=== PATIENT | female | born 1950 | race Caucasian/White ===

== ENCOUNTER 2019-08-24 08:58 | Outpatient (CLI) | payer MEDICARE, OTHER, SELFPAY ==
--- NOTE | ~2019-08-24 | MM_ITS ---
EXAMINATION: MM screening paula BI w jean-paul HISTORY: Screening mammogram TECHNIQUE: Craniocaudal and mediolateral oblique 3-D tomosynthesis images were obtained and synthetic 2-D images were generated. CAD analysis was submitted and interpreted. COMPARISON: 03/21/2017 bilateral digital screening mammogram BREAST PARENCHYMAL COMPOSITION: There are scattered areas of fibroglandular density. FINDINGS: Stable 6 mm circumscribed upper outer right breast mass, unchanged since 03/21/2017, consist ent with benign process, likely an intramammary lymph node. Occasional bilateral benign calcifications. There is no evidence of suspicious mass, calcification, o r architectural distortion to suggest malignancy in either breast. There has been no suspicious inter kadie change. IMPRESSION: 1. No mammographic evidence of malignancy. 2. Recommend routine screening mammography in one year. BI-RADS Category 2: Benign finding(s). Reviewed, dictated and finalized at location A. OWS LAPTOP TECHNICIAN
== END 2019-08-24 08:59 | disposition home or self-care (01) ==
LOC: ANHIMG 08:59
PROVIDERS: PCP Family Medicine; Visit Provider Nurse Practitioner Family
DX: Z12.31 Encounter for screening mammogram for malignant neoplasm of breast (principal)
CPT/HCPCS: 77063; 77067

== ENCOUNTER 2021-01-28 15:19 | Outpatient (CLI) | payer MEDICARE, OTHER, SELFPAY ==
--- NOTE | ~2021-01-28 | MM_ITS ---
EXAMINATION: MM screening paula BI w jean-paul HISTORY: Screening TECHNIQUE: Craniocaudal and mediolateral oblique 3-D tomosynthesis images were obtained and synthetic 2-D images were generated. CAD analysis was submitted and interpreted. COMPARISON: Comparison to multiple prior studies sequentially, with oldest reviewed study dated 03/21. BREAST PARENCHYMAL COMPOSITION: There are scattered areas of fibroglandular density. FINDINGS: Stable benign-appearing bilateral breast masses. There is no evidence of suspicious mass, c alcification, or architectural distortion to suggest malignancy in either breast. There has been no s uspicious interval change. IMPRESSION: 1. No mammographic evidence of malignancy. 2. Recommend routine screening mammography in one year. BI-RADS Category 2: Benign finding(s). Reviewed, dictated and finalized at location A.
== END 2021-01-28 15:20 | disposition home or self-care (01) ==
LOC: ANHIMG 15:20
PROVIDERS: PCP Family Medicine; Visit Provider Nurse Practitioner Family
DX: Z12.31 Encounter for screening mammogram for malignant neoplasm of breast (principal)
CPT/HCPCS: 77063; 77067

== ENCOUNTER 2021-03-23 09:47 | Outpatient (CLI) | payer MEDICARE, OTHER, SELFPAY ==
--- NOTE | ~2021-03-23 | DEXA_ITS ---
Bone Density Report Name: Chanelle Montana Age: 70 Sex: Female Ethnicity: White Date of : 1950 Indication: postmenopausal; height loss; hysterectomy; Referring Provider: Fiona Osman Study: Bone densitometry was performed. Exam Date: March 23, 2021 Accession number: [id number] Bone Density: Region BMD T-score Z-score Classification AP Spine (L1-L4) 1.025 -0.2 1.8 Normal Femoral Neck (Left) 0.637 -1.9 -0.2 Osteopenia Total Hip (Left) 0.815 -1.0 0.4 Normal Total Hip Bilateral Avg 0.842 -0.8 0.6 Normal Femoral Neck (Right) 0.643 -1.9 -0.1 Osteopenia Total Hip (Right) 0.868 -0.6 0.8 Normal World Health Organization criteria for BMD impression classify patients as: Normal (T-score at or above -1.0), Osteopenia (T-score between -1.0 and -2.5), or Osteoporosis (T-score at or below -2.5). 10-year Fracture Risk(1): Major Osteoporotic Fracture 11% Hip Fracture 1.7% Reported Risk Factors: [place] (), Neck BMD=0.643, BMI=29.7 (1) FRAX(R) Version 3.08. Fracture probability calculated for an untreated patient. Fracture probability may be lower if the patient has received treatment. Previous Exams: Region Exam Age BMD T-score BMD Change BMD Change Date g/cm2 vs Baseline vs Previous AP Spine(L1-L4) 03/23/2021 70 1.025 -0.2 0.102(11.1%)# -0.007(-0.7%) 03/21/2017 66 1.032 -0.1 0.109(11.8%)# 0.109(11.8%)# 01/10/2006 55 0.923 -1.1 Total Hip(Left) 03/23/2021 70 0.815 -1.0 -0.073(-8.2%)# -0.011(-1.3%) 03/21/2017 66 0.825 -1.0 -0.062(-7.0%)# -0.062(-7.0%)# 01/10/2006 55 0.887 -0.4 Total Hip(Right) 03/23/2021 70 0.868 -0.6 -0.017(-1.9%)# -0.004(-0.5%) 03/21/2017 66 0.872 -0.6 -0.013(-1.5%)# -0.013(-1.5%)# 01/10/2006 55 0.886 -0.5 *Denotes significance at 95% confidence level, LSC for AP Spine = 0.022 g/cm2, LSC for Total Hip = 0.027 g/cm2 Clinical Information Provided by Patient: Has used the following medications: Calcium Has the following medical conditions: Hysterectomy Patient maximum height was 65 Menopause Age: 36 Drinks caffeinated beverages Onset of menses at age 13 Number of children 2 Impression: The patient has low bone mass, based on the Left Femoral Neck T-score. The patient has an estimated ten-year risk of hip fracture of 1.7% and an estimated ten-year risk of major fracture of 11%, based on the WHO FRAX algorithm. No significant bone loss was observed. Discussion:
== END 2021-03-23 09:48 | disposition home or self-care (01) ==
LOC: ANHIMG 09:48
PROVIDERS: PCP Family Medicine; Visit Provider Nurse Practitioner Family
DX: Z78.0 Asymptomatic menopausal state (principal); M85.89 Other specified disorders of bone density and structure, multiple sites
CPT/HCPCS: 77080

== ENCOUNTER 2022-04-05 08:00 | Outpatient (CLI) | payer MEDICARE, OTHER, SELFPAY ==
[2022-04-05 19:08] LABS: Basophils Absolute Auto 0.1 K/mm3 (0.0-0.1); Basophils Percent Auto 0.8 % (0.2-1.2); Eosinophils Absolute Auto 0.2 K/mm3 (0-0.3); Eosinophils Percent Auto 3.8 % (0-4.4); Hematocrit 35.1 % (37.0-47.0); Hemoglobin 10.7 g/dL (12.0-15.0); Immature Granulocyte Absolute 0.05 K/mm3 (0.00-0.031); Immature Granulocyte Percent A 0.8 % (0-0.5); Lymphocytes Absolute Auto 1.71 K/mm3 (0.9-3.2); Lymphocytes Percent Auto 27.4 % (18.3-44.2); Mean Corpuscular HGB Conc 30.5 g/dl (32-36); Mean Corpuscular Hemoglobin 26.7 pg (26-34); Mean Corpuscular Volume 87.5 fl (80-100); Mean Platelet Volume 10.9 fl (7.4-10.4); Monocytes Absolute Auto 0.5 K/mm3 (0.1-0.6); Monocytes Percent Auto 7.5 % (2.6-8.5); Neutrophils Absolute Auto 3.7 K/mm3 (1.3-6.7); Neutrophils Percent Auto 59.7 % (45.5-73.1); Platelet Count Result 237 k/mm3 (150-375); Red Blood Count 4.01 M/mm3 (4.2-5.4); Red Cell Distribution Width 15.5 % (11.5-14.5); White Blood Count 6.2 K/mm3 (4.5-10.0)
[2022-04-05 19:19] LABS: Hemoglobin A1C 7.1 % (<5.7)
[2022-04-05 19:22] LABS: Alanine Aminotransferase 20 U/L (6-35); Albumin Level 4.3 g/dL (3.5-5.1); Alkaline Phosphatase 80 U/L (38-126); Anion Gap 15 mmol/L (8-16); Aspartate Amino Transferase 27 U/L (14-36); Bilirubin,Total 0.5 mg/dL (0.2-1.3); Blood Urea Nitrogen 23 mg/dL (7-17); Calcium 9.2 mg/dL (8.4-10.2); Carbon Dioxide 24 mmol/L (22-30); Chloride 103 mmol/L (98-107); Cholesterol 96 mg/dL (0-200); Estimated Glomerular Filt Rate 45; Glucose 110 mg/dL (65-110); HDL Direct 33 mg/dL; Potassium 4.6 mmol/L (3.4-5.0); Sodium 142 mmol/L (137-145); Triglycerides 221 mg/dL (<150)
[2022-04-05 19:40] LABS: Iron 52 ug/dL (37-170)
[2022-04-05 20:18] LABS: Ferritin 9.51 ng/mL (11.1-264)
[2022-04-05 20:31] LABS: Creatinine Urine 80.6 mg/dL
[2022-04-05 20:34] LABS: MALB Creatinine Ratio 15.4 mg/g (0-30); Microalbumin Urine Random 12.4 mg/L (0-16.7)
[2022-04-05 20:39] LABS: LDL Cholesterol Direct < 30 mg/dL
[2022-04-05 20:53] LABS: Percent Iron Saturation 12 % (20-50)
== END 2022-04-05 08:01 | disposition home or self-care (01) ==
PROVIDERS: PCP Family Medicine; Visit Provider Nurse Practitioner Family
DX: I10 Essential (primary) hypertension (principal); D50.9 Iron deficiency anemia, unspecified; E78.5 Hyperlipidemia, unspecified; E11.9 Type 2 diabetes mellitus without complications; E03.9 Hypothyroidism, unspecified
CPT/HCPCS: 36415; 80053; 80061; 82043; 82728; 83036; 83540; 83550; 84443; 85025

== ENCOUNTER 2022-04-08 17:24 | Outpatient (CLI) | payer MEDICARE, OTHER, SELFPAY ==
--- NOTE | ~2022-04-08 | MM_ITS ---
EXAMINATION: MM screening paula BI w jean-paul HISTORY: Screening mammogram TECHNIQUE: Craniocaudal and mediolateral oblique 3-D tomosynthesis images were obtained and synthetic 2-D images were generated. CAD analysis was submitted and interpreted. COMPARISON: 01/28/2021, , 03/21/2017 bilateral screening mammogram examinations BREAST PARENCHYMAL COMPOSITION: There are scattered areas of fibroglandular density. FINDINGS: There is no evidence of suspicious mass, calcification, or architectural distortion to sugg est malignancy in either breast. There has been no suspicious interval change. IMPRESSION: 1. No mammographic evidence of malignancy. 2. Recommend routine screening mammography in one year. BI-RADS Category 1: Negative Reviewed, dictated and finalized at location A.
== END 2022-04-08 17:25 | disposition home or self-care (01) ==
PROVIDERS: PCP Family Medicine; Visit Provider Nurse Practitioner Family
DX: Z12.31 Encounter for screening mammogram for malignant neoplasm of breast (principal)
CPT/HCPCS: 77063; 77067

== ENCOUNTER 2022-06-11 09:27 | Emergency (ER) | payer MEDICARE, OTHER, SELFPAY ==
--- NOTE | ~2022-06-11 | XR_ITS ---
EXAMINATION: XR shoulder RT min 2V DATE: 06/11/2022 10:08 INDICATION: Right shoulder deformity. Fall. TECHNIQUE: 3 views of right shoulder were obtained. COMPARISON: None. FINDINGS: There is an oblique fracture of proximal humeral diaphysis. The distal fracture fragment de monstrates 19 degrees posterior angulation. Glenohumeral joint is not well profiled. There is mild ac romioclavicular joint osteoarthritis. IMPRESSION: 1. Oblique fracture of proximal humeral diaphysis. Reviewed, dictated and finalized at location A. RVISOR LENS GENERATING
--- NOTE | ~2022-06-11 | CT_ITS ---
EXAMINATION: CT brain wo con DATE: 06/11/2022 09:57 INDICATION: Fall. Head injury. Patient struck the right superior aspect of the head TECHNIQUE: Computed tomography (CT) of the head was performed without intravenous contrast. The mA wa s adjusted according to patient size. Iterative reconstruction technique was employed. Exam dose: 60 5.33 mGy-cm total exam DLP. COMPARISON: None FINDINGS: No intracranial mass lesion or hemorrhage or cerebrovascular accident. No midline shift or mass effect effect. Normal ventricular size. No subdural or epidural hematoma. There is some cerebral atherosclerotic calcification. Mild partial opacification of bilateral ethmoid air cells. The paranasal sinuses and mastoid air cell s otherwise are normally developed and aerated. No fracture or bone destruction of the cranial vault. IMPRESSION: No skull fracture or acute intracranial abnormality Reviewed, dictated and finalized at Location A. Reviewed, dictated and finalized at location B. STER LEADER
--- NOTE | ~2022-06-11 | XR_ITS ---
EXAMINATION: XR knee RT 3V DATE: 06/11/2022 10:08 INDICATION: Right knee pain. Fall. TECHNIQUE: 3 views of right knee were obtained. COMPARISON: None. FINDINGS: Bone alignment is normal. No fracture. There is mild osteoarthritis of medial and patellofe moral compartments. No knee joint effusion. IMPRESSION: 1. Mild right knee osteoarthritis. Reviewed, dictated and finalized at location A. MOLDER
--- NOTE | 2022-06-11 09:44 | ED.FALL ---
HPI - Fall General Chief Complaint: Fall Stated Complaint: fall down three steps and hurt shoulder Time Seen by Provider: 06/11/22 09:35 History of Present Illness HPI Narrative: Patient is a 72-year-old female who presents to the emergency department after a fall today. Patient states that she was going up several steps carrying a large bag when she lost her footing and fell, landing on her right side. Patient reports right shoulder and right knee and head injury. Denies loss of consciousness. She takes aspirin daily. Has not taken any medicine for pain. Patient states that her right arm feels numb and tingly and she is unable to move the shoulder due to pain. Related Data Home Medications Medication Instructions Recorded Confirmed aspirin 81 mg chewable tablet 81 mg PO DAILY 08/13/19 02/09/22 (Bertram Chewable Low Dose Aspirin) atorvastatin 20 mg tablet 20 mg PO DAILY 08/13/19 02/09/22 lisinopril 20 mg tablet 20 mg PO DAILY 08/13/19 02/09/22 calcium carbonate 600 mg-vitamin cap PO 04/21/20 02/09/22 D3 5 mcg (200 unit) capsule (Calcium 600 + D(3)) carvedilol 3.125 mg tablet 3.125 mg PO .COMPLEX 02/09/22 02/09/22 Allergies Allergy/AdvReac Type Severity Reaction Status Date / Time codeine Allergy Unknown Unknown Verified 06/11/22 09:27 Review of Systems Review of Systems: Gen: Denies fevers or chills Eyes: Denies eye pain or visual change ENT: Denies congestion Respiratory: Denies shortness of breath or cough CV: Denies chest pain or palpitations GI: Denies abdominal pain nausea, emesis or diarrhea : denies burning, urgency, frequency or hematuria Musculoskeletal: Reports right shoulder, right knee pain. Neuro: Denies numbness, tingling, weakness or focal weakness Skin: Denies rash Except as documented, all other systems reviewed and negative [facility] Past Medical History Medical History Actinic keratoses CAD (coronary artery disease) Central retinal vein occlusion of right eye CKD (chronic kidney disease) stage 3, GFR 30-59 ml/min Essential (primary) hypertension GERD without esophagitis Hyperlipidemia Hypothyroid OAB (overactive bladder) Osteopenia Recurrent UTI Type 2 diabetes mellitus without complications Surgical History Surgical History H/O colonoscopy (~03/2017) History of coronary artery stent placement 12/2012 History of hysterectomy (~1985) History of right cataract surgery 06/2019 History of tonsillectomy Family History Family History Father Family history of cardiovascular disease Other Acute myocardial infarction Family history of malignant neoplasm of breast Family history of primary malignant neoplasm of liver Social History Social History (Updated 02/09/22 @ 11:43 by Fiona Osman NP) Social History: Chanelle is , she is an regulatory technician, still working part-time. Smoking status: Never smoker Alcohol intake: never Substance use: never Substance use type: does not use Additional living arrangements comments: 35 years/1 daughter 1 son 3 step sons 6 grandchildren Gender identity (if verbalized by the patient): Female Sexual Orientation (if Verbalized by the Patient): Straight or Heterosexual Agree to blood products: Yes Exam Narrative: APPEARANCE: Well appearing, no pain in distress, well-nourished. Head: Normocephalic and atraumatic. EYES: PERRLA/EOMI, conjunctivae clear NOSE: No nasal drainage EARS: External ear normal in appearance THROAT: Oropharynx is clear. Mucous membranes are moist. NECK: Supple. No adenopathy, no masses. RESPIRATORY: Airway patent, respirations nonlabored. Clear to auscultation bilaterally, no rales, rhonchi, wheezing. CARDIOVASCULAR: 1+ radial pulse bilaterally. Regular rate and rhythm without murmurs, rubs, or gallops. ABDOMINAL: N
--- NOTE | 2022-06-11 09:47 | PC.NURSE ---
Patient taken to CT. Patient states she is okay waiting for IV and pain medications prior to scans.
[2022-06-11] MEDS: ONDANSETRON INJ 4 MG/2 ML VIAL IV PUSH (10:23)
[2022-06-11] MEDS: MORPHINE SULFATE (*CRX) 4 MG/ML INJ IV PUSH (10:23)
[2022-06-11 11:25] VITALS: BP 132/72; PULSE 78; RESP 18; O2SAT 99
== END 2022-06-11 11:26 | disposition home or self-care (01) ==
PROVIDERS: Emergency Provider Physician Assistant; PCP Family Medicine
DX: S49.091A Other physeal fracture of upper end of humerus, right arm, initial encounter for closed fracture (principal); S09.90XA Unspecified injury of head, initial encounter; I25.10 Atherosclerotic heart disease of native coronary artery without angina pectoris; I12.9 Hypertensive chronic kidney disease with stage 1 through stage 4 chronic kidney disease, or unspecified chronic kidney disease; E11.22 Type 2 diabetes mellitus with diabetic chronic kidney disease; N18.30 Chronic kidney disease, stage 3 unspecified; E78.5 Hyperlipidemia, unspecified; E03.9 Hypothyroidism, unspecified; N32.81 Overactive bladder; K21.9 Gastro-esophageal reflux disease without esophagitis; M85.80 Other specified disorders of bone density and structure, unspecified site; Z87.440 Personal history of urinary (tract) infections; Z95.5 Presence of coronary angioplasty implant and graft; Z90.710 Acquired absence of both cervix and uterus; Z98.41 Cataract extraction status, right eye; M17.11 Unilateral primary osteoarthritis, right knee; Z79.84 Long term (current) use of oral hypoglycemic drugs; Z79.4 Long term (current) use of insulin; Z79.82 Long term (current) use of aspirin; W10.9XXA Fall (on) (from) unspecified stairs and steps, initial encounter
CPT/HCPCS: 70450; 73030; 73562; 96374; 96375; 99284; A4565; J2270; J2405

== ENCOUNTER 2023-02-28 08:44 | Outpatient (CLI) | payer MEDICARE, OTHER, SELFPAY ==
[2023-02-28 11:40] LABS: Basophils Absolute Auto 0.1 K/mm3 (0.0-0.1); Basophils Percent Auto 0.8 % (0.2-1.2); Eosinophils Absolute Auto 0.5 K/mm3 (0-0.3); Eosinophils Percent Auto 6.8 % (0-4.4); Hematocrit 31.2 % (37.0-47.0); Hemoglobin 8.8 g/dL (12.0-15.0); Immature Granulocyte Absolute 0.03 K/mm3 (0.00-0.031); Immature Granulocyte Percent A 0.4 % (0-0.5); Lymphocytes Absolute Auto 1.32 K/mm3 (0.9-3.2); Lymphocytes Percent Auto 18.4 % (18.3-44.2); Mean Corpuscular HGB Conc 28.2 g/dl (32-36); Mean Corpuscular Hemoglobin 21.9 pg (26-34); Mean Corpuscular Volume 77.6 fl (80-100); Mean Platelet Volume 9.9 fl (7.4-10.4); Monocytes Absolute Auto 0.6 K/mm3 (0.1-0.6); Neutrophils Absolute Auto 4.7 K/mm3 (1.3-6.7); Neutrophils Percent Auto 65.6 % (45.5-73.1); Platelet Count Result 305 k/mm3 (150-375); Red Blood Count 4.02 M/mm3 (4.2-5.4); Red Cell Distribution Width 18.2 % (11.5-14.5); White Blood Count 7.2 K/mm3 (4.5-10.0)
[2023-02-28 11:42] LABS: Anion Gap 10 mmol/L (8-16); Blood Urea Nitrogen 18 mg/dL (7-17); Carbon Dioxide 25 mmol/L (22-30); Chloride 107 mmol/L (98-107); Estimated Glomerular Filt Rate 49; Glucose 136 mg/dL (65-110); Potassium 4.8 mmol/L (3.4-5.0); Sodium 142 mmol/L (137-145)
[2023-02-28 11:43] LABS: Alanine Aminotransferase 19 U/L (6-35); Albumin Level 4.3 g/dL (3.5-5.1); Alkaline Phosphatase 81 U/L (38-126); Aspartate Amino Transferase 32 U/L (14-36); Bilirubin,Total 0.7 mg/dL (0.2-1.3); Calcium 9.3 mg/dL (8.4-10.2); Cholesterol 110 mg/dL (0-200); HDL Direct 39 mg/dL; Triglycerides 220 mg/dL (<150)
[2023-02-28 11:56] LABS: LDL Cholesterol Direct 35 mg/dL
[2023-02-28 12:59] LABS: Hemoglobin A1C 6.8 % (<5.7)
[2023-02-28 14:04] LABS: Platelet Estimate Adequate (Adequate); Tear Drop Cells 1+ (NORMAL)
[2023-02-28 14:05] LABS: Anisocytosis 2+ (NORMAL); Ovalocytes 1+ (NORMAL); Poikilocytosis 2+ (NORMAL); Polychromasia 1+ (NORMAL); Schistocytes None Seen (NORMAL)
[2023-02-28 18:00] LABS: Creatinine Urine 177.6 mg/dL
[2023-02-28 18:04] LABS: MALB Creatinine Ratio 21.7 mg/g (0-30); Microalbumin Urine Random 38.5 mg/L (0-16.7)
== END 2023-02-28 08:45 | disposition home or self-care (01) ==
LOC: ANHGOSHLAB 08:47
PROVIDERS: PCP Family Medicine; Visit Provider Nurse Practitioner Family
DX: E11.9 Type 2 diabetes mellitus without complications (principal); I10 Essential (primary) hypertension; E03.9 Hypothyroidism, unspecified; E78.5 Hyperlipidemia, unspecified
CPT/HCPCS: 36415; 80053; 80061; 82043; 83036; 84443; 85025

== ENCOUNTER 2023-05-09 01:13 | Day surgery (SDC) | payer MEDICARE, OTHER, SELFPAY ==
[2023-04-28 10:09] VITALS: BMI 29.7
[2023-05-09 08:46] VITALS: BP 152/69; PULSE 71; RESP 18; TEMP 36.5; O2SAT 98
--- NOTE | 2023-05-09 09:01 | WPDANESEPPF ---
Anes - Initial Pre Proc Eval Procedure: Operation Date: 05/09/23 10:00 Proposed Procedures p Colonoscopy - Scott Pickett MD Date/Time: 05/09/23 09:01 Surgeon: Scott Pickett MD Pre Op Diagnosis: Personal hx of colonic polyps Patient Data Age: 73 Gender: F Height: 1.59 m Weight: 73.4 kg Last Vital Signs Temp 97.7 F 05/09/23 08:46 Pulse 71 05/09/23 08:46 Resp 18 05/09/23 08:46 BP 152/69 H 05/09/23 08:46 Pulse Ox 98 05/09/23 08:46 O2 Del Method Room Air 05/09/23 08:46 Allergies Allergy/AdvReac Type Severity Reaction Status Date / Time codeine Allergy Severe Swelling Verified 05/09/23 08:45 of Lip/Tongue/Throat Home Medications Medication Instructions Recorded Confirmed Type aspirin 81 mg chewable tablet 81 mg PO DAILY 08/13/19 04/28/23 History (Bertram Chewable Low Dose Aspirin) atorvastatin 20 mg tablet 20 mg PO DAILY 08/13/19 04/28/23 History lisinopril 20 mg tablet 20 mg PO DAILY 08/13/19 04/28/23 History calcium carbonate 600 mg-vitamin 1 cap PO DAILY 04/21/20 04/28/23 History D3 5 mcg (200 unit) capsule (Calcium 600 + D(3)) pantoprazole 40 mg tablet,delayed 40 mg PO DAILY #90 tabs 01/09/21 04/28/23 Rx release cholecalciferol (vitamin D3) 50 50 mcg PO DAILY #90 caps 03/24/21 04/28/23 Rx mcg (2,000 unit) capsule lancets (Accu-Chek Fastclix Lancet #300 ea 01/04/22 02/28/23 Rx Drum) pen needle, diabetic 31 gauge x #100 ea 04/29/22 08/30/22 Rx 3/16 (Pen Needle) carvedilol 3.125 mg tablet 3.125 mg PO BID 08/30/22 05/09/23 History insulin glargine 100 unit/mL (3 8 unit (0.08 mL) subcut DAILY #15 10/20/22 04/28/23 Rx mL) subcutaneous pen (Lantus mL Solostar U-100 Insulin) hydrochlorothiazide 12.5 mg tablet 12.5 mg PO DAILY #90 tabs 01/03/23 04/28/23 Rx sitagliptin phos 50 mg-metformin 1 tablet PO BID #180 tabs 01/17/23 04/28/23 Rx ER 1,000 mg tablet,extend rel 24h mp (Janumet XR) diclofenac potassium 50 mg tablet 50 mg PO BID #60 tabs 03/02/23 04/28/23 Rx oxybutynin chloride 10 mg 10 mg PO DAILY #90 tabs 03/30/23 04/28/23 Rx tablet,extended release 24 hr blood sugar diagnostic (Accu-Chek See Rx Instructions .Route 04/15/23 Rx Alma Plus test strips) .COMPLEX #300 strips glipizide 10 mg tablet See Rx Instructions PO DAILY #225 04/22/23 04/28/23 Rx tabs cruiuqhpmyyd-bbrrbuml-oiaf 1 tablet PO DAILY 04/28/23 04/28/23 History fumarate 18 mg-folic acid 400 mcg tablet (One-A-Day Women's Complete) Patient hx anesthesia problems: none Family hx anesthesia problems: none Results Review: All pre-operative results and documents have been reviewed as part of the pre-operative evaluation. [facility] Past Medical History Medical History Actinic keratoses CAD (coronary artery disease) Central retinal vein occlusion of right eye CKD (chronic kidney disease) stage 3, GFR 30-59 ml/min Essential (primary) hypertension GERD without esophagitis Hyperlipidemia Hypothyroid OAB (overactive bladder) Osteopenia Recurrent UTI Type 2 diabetes mellitus without complications Surgical History Surgical History H/O colonoscopy (~03/2017) History of coronary artery stent placement 12/2012 History of hysterectomy (~1985) History of right cataract surgery 06/2019 History of tonsillectomy History of tooth extraction Hx of shoulder surgery (~06/2022) Rt humerus spiral fracture - ORIF at [place] Family History Family History Father Family history of cardiovascular disease Other Acute myocardial infarction Family history of malignant neoplasm of breast Family history of primary malignant neoplasm of liver Social History Social History (Updated 02/28/23 @ 10:06 by aKty Turner) Social History: Chanelle is , she is an production material coordinator, still working pa
[2023-05-09] MEDS: LACTATED RINGERS 1,000 ML 150 ML IV CONT (09:02)
[2023-05-09 09:03] LABS: Glucose Point of Care 185 mg/dl (65-105)
--- NOTE | 2023-05-09 09:05 | PM.HPGS ---
History of Present Illness History of Present Illness Consent: Risks, benefits, and alternatives have been discussed and questions answered. Patient agrees to proceed with procedure. Chief complaint: Personal hx of colonic polyps Narrative: Chanelle Montana is a 73 year old female with colon polyp in 2018, also noted anemia but no overt gib Review of Systems Constitutional: Constitutional: Denies headache(s) and Denies weakness Eyes: Eyes: Denies blurry vision ENT: Reports Normal hearing present, Denies headache(s) and Denies neck pain Cardiovascular: Cardiovascular: Denies chest pain and Denies dyspnea Respiratory: Respiratory: Denies dyspnea Gastrointestinal: Gastrointestinal: Reports no additional gastrointestinal complaints Genitourinary: Genitourinary: Denies dysuria Musculoskeletal: Musculoskeletal: Denies neck pain Integumentary/Breasts: Skin/Breast: Denies dry skin Neurologic: Reports Normal hearing present, Denies headache(s) and Denies weakness Psychiatric: Psychiatric: Denies anxiety Endocrine: Endocrine: Denies change in body appearance Hematologic/Lymphatic: Hematologic/Lymphatic: Denies easy bleeding Allergic/Immunologic: Allergic/Immunologic: Denies urticaria PMFSH Past Medical History Medical History Actinic keratoses CAD (coronary artery disease) Central retinal vein occlusion of right eye CKD (chronic kidney disease) stage 3, GFR 30-59 ml/min Essential (primary) hypertension GERD without esophagitis Hyperlipidemia Hypothyroid OAB (overactive bladder) Osteopenia Recurrent UTI Type 2 diabetes mellitus without complications Surgical History Surgical History H/O colonoscopy (~03/2017) History of coronary artery stent placement 12/2012 History of hysterectomy (~1985) History of right cataract surgery 06/2019 History of tonsillectomy History of tooth extraction Hx of shoulder surgery (~06/2022) Rt humerus spiral fracture - ORIF at [place] Family History Family History Father Family history of cardiovascular disease Other Acute myocardial infarction Family history of malignant neoplasm of breast Family history of primary malignant neoplasm of liver Social History Social History (Updated 02/28/23 @ 10:06 by Katy Turner) Social History: Chanelle is , she is an spa technician, still working part-time. Caffeine-occasionally Smoking status: Never smoker Alcohol intake: current Substance use: never Substance use type: does not use Lack of Transportation: No Lack of Food: Never True Current Housing: I Have Housing Concerned About Future Housing: No Difficulty Paying Gas/Electric Bills: No Difficulty Paying for Meds: No Currently Unemployed: No Education: Master's Degree or Higher Difficulty w/ Childcare or Family Care: No Living arrangements: with family Additional living arrangements comments: 35 years/1 daughter 1 son 3 step sons 6 grandchildren Occupation/Education: retired Gender identity (if verbalized by the patient): Female Sexual Orientation (if Verbalized by the Patient): Straight or Heterosexual Spiritual care concerns: No Agree to blood products: Yes Meds Home Medications and Allergies Home Medications Medication Instructions Recorded Confirmed Type aspirin 81 mg chewable tablet 81 mg PO DAILY 08/13/19 04/28/23 History (Bertram Chewable Low Dose Aspirin) atorvastatin 20 mg tablet 20 mg PO DAILY 08/13/19 04/28/23 History lisinopril 20 mg tablet 20 mg PO DAILY 08/13/19 04/28/23 History calcium carbonate 600 mg-vitamin 1 cap PO DAILY 04/21/20 04/28/23 History D3 5 mcg (200 unit) capsule (Calcium 600 + D(3)) pantoprazole 40 mg tablet,delayed 40 mg PO DAILY #90 tabs 01/09/21 04/28/23 Rx release cholecalciferol (vitamin D3) 50 50 mcg PO DAILY
[2023-05-09 09:26] VITALS: BP 119/62; PULSE 70; RESP 26; O2SAT 98
[2023-05-09 09:36] VITALS: BP 103/61; PULSE 63; RESP 16; O2SAT 96
[2023-05-09 09:46] VITALS: BP 130/75; PULSE 62; RESP 18; O2SAT 97
[2023-05-09 09:49] LABS: Glucose Point of Care 191 mg/dl (65-105)
== END 2023-05-09 09:52 | disposition home or self-care (01) ==
PROVIDERS: PCP Family Medicine; Visit Provider Internal Medicine Gastroenterology
PROC: 0DJD8ZZ Inspection of Lower Intestinal Tract, Via Natural or Artificial Opening Endoscopic (ICD-10-PCS; CPT 45378; principal; 2023-05-09 10:00)
DX: Z12.11 Encounter for screening for malignant neoplasm of colon (principal); K57.30 Diverticulosis of large intestine without perforation or abscess without bleeding; K52.9 Noninfective gastroenteritis and colitis, unspecified; K64.8 Other hemorrhoids; Z86.010 Personal history of colon polyps; I25.10 Atherosclerotic heart disease of native coronary artery without angina pectoris; I12.9 Hypertensive chronic kidney disease with stage 1 through stage 4 chronic kidney disease, or unspecified chronic kidney disease; E11.22 Type 2 diabetes mellitus with diabetic chronic kidney disease; N18.30 Chronic kidney disease, stage 3 unspecified; E78.5 Hyperlipidemia, unspecified; E03.9 Hypothyroidism, unspecified; N32.81 Overactive bladder; Z95.5 Presence of coronary angioplasty implant and graft; Z79.4 Long term (current) use of insulin; Z79.82 Long term (current) use of aspirin; Z79.84 Long term (current) use of oral hypoglycemic drugs
CPT/HCPCS: 45380; 82948; 88305; J2704; J7120

== ENCOUNTER 2023-08-04 14:43 | Outpatient (CLI) | payer MEDICARE, OTHER, SELFPAY ==
--- NOTE | ~2023-08-04 | MM_ITS ---
EXAMINATION: MM screening paula BI w jean-paul HISTORY: Screening mammogram, family history of breast cancer in her daughter. TECHNIQUE: Craniocaudal and mediolateral oblique 3-D tomosynthesis images were obtained and synthetic 2-D images were generated. CAD analysis was submitted and interpreted. COMPARISON: 04/08/2022, 01/28/2021, 08/24/2019 BREAST PARENCHYMAL COMPOSITION: There are scattered areas of fibroglandular density. FINDINGS: RIGHT BREAST: No suspicious mass, calcification, or architectural distortion are identified to sugges t malignancy. There has been no suspicious interval change. LEFT BREAST: Focal asymmetry is present in the posterior third of the outer breast approximately 9 cm from the nipple. IMPRESSION: 1. Left breast focal asymmetry. 2. Additional mammographic views and possible breast ultrasound are recommended. BI-RADS Category 0: Incomplete: Needs additional imaging evaluation. Reviewed, dictated and finalized at location A. ICAL SPECIALTY REP IMPRESSION: 1. Left breast focal asymmetry. 2. Additional mammographic views and possible breast ultrasound are recommended . BI-RADS Category 0: Incomplete: Needs additional imaging evaluation.
== END 2023-08-04 14:44 | disposition home or self-care (01) ==
LOC: ANHIMG 14:45
PROVIDERS: PCP Family Medicine; Visit Provider Nurse Practitioner Family
DX: Z12.31 Encounter for screening mammogram for malignant neoplasm of breast (principal); R92.8 Other abnormal and inconclusive findings on diagnostic imaging of breast
CPT/HCPCS: 77063; 77067

== ENCOUNTER 2023-09-05 10:13 | Outpatient (CLI) | payer MEDICARE, OTHER, SELFPAY ==
--- NOTE | ~2023-09-05 | DEXA_ITS ---
Bone Density Report Name: TIFFANIE CAVAZOS Age: 73 Sex: Female Ethnicity: White Date of : 1950 Indication: postmenopausal; screening for osteoporosis; height loss; hysterectomy; Referring Provider: HADLEY EDUARDO Study: Bone densitometry was performed. Exam Date: September 05, 2023 Accession number: [id number] Bone Density: Region BMD T-score Z-score Classification AP Spine(L1-L4) 0.979 -0.6 1.6 Normal Femoral Neck (Left) 0.626 -2.0 -0.1 Osteopenia Total Hip (Left) 0.820 -1.0 0.6 Normal Femoral Neck (Right) 0.638 -1.9 0.0 Osteopenia Total Hip (Right) 0.844 -0.8 0.8 Normal Total Hip Mean 0.832 -0.9 0.7 Normal World Health Organization criteria for BMD impression classify patients as: Normal (T-score at or above -1.0), Osteopenia (T-score between -1.0 and -2.5), or Osteoporosis (T-score at or below -2.5). 10-year Fracture Risk(1): Major Osteoporotic Fracture 12% Hip Fracture 2.3% Reported Risk Factors: [place] (), Neck BMD=0.626, BMI=29.3 (1) FRAX(R) Version 3.08. Fracture probability calculated for an untreated patient. Fracture probability may be lower if the patient has received treatment. Previous Exams: Region Exam Age BMD T-score BMD Change BMD Change Date g/cm2 vs Baseline vs Previous AP Spine (L1-L4) 09/05/2023 73 0.979 -0.6 -0.053 (-5.1%) -0.046 (-4.5%) 03/23/2021 70 1.025 -0.2 -0.007 (-0.7%) -0.007 (-0.7%) 03/21/2017 66 1.032 -0.1 Total Hip(Left) 09/05/2023 73 0.820 -1.0 -0.005 (-0.6%) 0.006 (0.7%) 03/23/2021 70 0.815 -1.0 -0.011 (-1.3%) -0.011 (-1.3%) 03/21/2017 66 0.825 -1.0 Total Hip(Right) 09/05/2023 73 0.844 -0.8 -0.028 (-3.2%) -0.024 (-2.8%) 03/23/2021 70 0.868 -0.6 -0.004 (-0.5%) -0.004 (-0.5%) 03/21/2017 66 0.872 -0.6 *Denotes significance at 95% confidence level, LSC for AP Spine = 0.022 g/cm2, LSC for Total Hip = 0.027 g/cm2 Clinical Information Provided by Patient: Has used the following medications: Vitamin D, Calcium Has the following medical conditions: Hysterectomy Patient maximum height was 64 Menopause Age: 36 Drinks caffeinated beverages Onset of menses at age 13 Number of children 2 Impression: The patient has low bone mass, based on the Left Femoral Neck T-score. The patient has an estimated ten-year risk of hip fracture of 2.3% and an estimated ten-year risk of major fracture of 12%, based on the WHO FRAX algorithm. Th
--- NOTE | ~2023-09-05 | MMUS_ITS ---
EXAMINATION: MM diagnostic paula LT w jean-paul, US breast LT limited HISTORY: Follow-up left breast asymmetry TECHNIQUE: Additional 3-D tomosynthesis images of the left breast were performed and synthetic 2-D im ages were generated. CAD analysis was submitted and interpreted. High resolution Limited left breast ultrasound was performed. COMPARISON: 08/04/2013 BREAST PARENCHYMAL COMPOSITION: Not dense: There are scattered areas of fibroglandular density. FINDINGS: MAMMOGRAPHIC FINDINGS: There is persistent focal asymmetry in the upper outer quadrant of the left breast posteriorly. There are benign calcifications of the left breast. No architectural distortion. ULTRASOUND: Limited left breast ultrasound: At 2:00, 5 cm from the nipple, there is is an oval slightly irregular hypoechoic 6 mm mass without posterior features or internal vascularity. At 12:00, 4 cm from the nip ple, there is an oval hypoechoic structure with internal anechoic areas. This measures 11 x 10 x 3 mm . IMPRESSION: 1. Oval hypoechoic 6 mm mass at 2:00, 5 cm from the nipple. Ultrasound-guided biopsy recommended. BI- RADS Category 4. 2. Oval hypoechoic mass measuring 11 mm at 12:00, 4 cm from the nipple, likely benign. Six-month foll ow-up ultrasound recommended. Reviewed, dictated and finalized at location A. LINE TEAMSTER IMPRESSION: 1. Oval hypoechoic 6 mm mass at 2:00, 5 cm from the nipple. Ultrasound-guided b iopsy recommended. BI-RADS Category 4. 2. Oval hypoechoic mass measuring 11 mm at 12:00, 4 cm from the nipple, likely benign. Six-month follow-up ultrasound recommended.
== END 2023-09-06 07:45 | disposition home or self-care (01) ==
LOC: ANHIMG 10:14
PROVIDERS: PCP Family Medicine; Visit Provider Nurse Practitioner Family
DX: Z78.0 Asymptomatic menopausal state (principal); R92.8 Other abnormal and inconclusive findings on diagnostic imaging of breast; M85.852 Other specified disorders of bone density and structure, left thigh; M85.851 Other specified disorders of bone density and structure, right thigh
CPT/HCPCS: 76642; 77061; 77065; 77080; G0279

== ENCOUNTER 2023-09-12 08:19 | Outpatient (CLI) | payer MEDICARE, OTHER, SELFPAY ==
[2023-09-12 19:13] LABS: Iron 31 ug/dL (37-170)
[2023-09-12 19:28] LABS: Basophils Percent Auto 0.7 % (0.2-1.2); Eosinophils Absolute Auto 0.2 K/mm3 (0-0.3); Eosinophils Percent Auto 3.3 % (0-4.4); Hematocrit 31.6 % (37.0-47.0); Hemoglobin 8.3 g/dL (12.0-15.0); Immature Granulocyte Absolute 0.03 K/mm3 (0.00-0.031); Immature Granulocyte Percent A 0.5 % (0-0.5); Lymphocytes Absolute Auto 1.43 K/mm3 (0.9-3.2); Lymphocytes Percent Auto 25.9 % (18.3-44.2); Mean Corpuscular HGB Conc 26.3 g/dl (32-36); Mean Corpuscular Hemoglobin 21.1 pg (26-34); Mean Corpuscular Volume 80.2 fl (80-100); Mean Platelet Volume 10.3 fl (7.4-10.4); Monocytes Absolute Auto 0.5 K/mm3 (0.1-0.6); Neutrophils Absolute Auto 3.4 K/mm3 (1.3-6.7); Neutrophils Percent Auto 60.6 % (45.5-73.1); Platelet Count Result 304 k/mm3 (150-375); Red Blood Count 3.94 M/mm3 (4.2-5.4); Red Cell Distribution Width 18.6 % (11.5-14.5); White Blood Count 5.5 K/mm3 (4.5-10.0)
[2023-09-12 19:29] LABS: Percent Iron Saturation 8 % (20-50)
[2023-09-12 19:41] LABS: Vitamin D 25 Hydroxy 77.5 ng/mL
[2023-09-12 19:49] LABS: Ferritin 5.75 ng/mL (11.1-264)
[2023-09-12 20:21] LABS: Platelet Estimate Adequate (Adequate); Schistocytes None Seen (NORMAL)
[2023-09-12 20:22] LABS: Anisocytosis 2+ (NORMAL); Hypochromasia 1+ (NORMAL)
[2023-09-12 20:24] LABS: Folic Acid 5.7 ng/mL (2.76->20)
[2023-09-12 20:29] LABS: Alanine Aminotransferase 11 U/L (6-35); Albumin Level 4.1 g/dL (3.5-5.1); Alkaline Phosphatase 82 U/L (38-126); Anion Gap 7 mmol/L (8-16); Aspartate Amino Transferase 20 U/L (14-36); Bilirubin,Total 0.4 mg/dL (0.2-1.3); Blood Urea Nitrogen 23 mg/dL (7-17); Calcium 9.5 mg/dL (8.4-10.2); Carbon Dioxide 23 mmol/L (22-30); Chloride 110 mmol/L (98-107); Cholesterol 88 mg/dL (0-200); Estimated Glomerular Filt Rate 49; Glucose 129 mg/dL (65-110); HDL Direct 36 mg/dL; Potassium 4.5 mmol/L (3.4-5.0); Sodium 140 mmol/L (137-145); Triglycerides 185 mg/dL (<150)
[2023-09-12 20:39] LABS: LDL Cholesterol Direct 30 mg/dL
[2023-09-12 21:36] LABS: Hemoglobin A1C 7.2 % (<5.7)
[2023-09-14 20:19] LABS: Tissue Transglutaminase IgG Ab <1.0 U/mL (<15.0)
[2023-09-15 17:32] LABS: Tissue Transglutaminase IgA Ab <1.0 U/mL (<15.0)
== END 2023-09-12 08:20 | disposition home or self-care (01) ==
PROVIDERS: Internal Medicine Gastroenterology; PCP Family Medicine; Visit Provider Nurse Practitioner Family
DX: E03.9 Hypothyroidism, unspecified (principal); E11.9 Type 2 diabetes mellitus without complications; E78.5 Hyperlipidemia, unspecified; I25.10 Atherosclerotic heart disease of native coronary artery without angina pectoris; K52.9 Noninfective gastroenteritis and colitis, unspecified; E55.9 Vitamin D deficiency, unspecified; D50.9 Iron deficiency anemia, unspecified; R74.8 Abnormal levels of other serum enzymes; I12.9 Hypertensive chronic kidney disease with stage 1 through stage 4 chronic kidney disease, or unspecified chronic kidney disease; N18.30 Chronic kidney disease, stage 3 unspecified
CPT/HCPCS: 36415; 80053; 80061; 82306; 82607; 82728; 82746; 83036; 83540; 83550; 84443; 85025; 86364

== ENCOUNTER 2023-09-13 11:04 | Outpatient (CLI) | payer MEDICARE, OTHER, SELFPAY ==
[2023-09-20 22:07] LABS: Pancreatic Elastase, Stool >500 mcg/g
== END 2023-09-13 11:05 | disposition home or self-care (01) ==
PROVIDERS: PCP Family Medicine; Referring Provider Nurse Practitioner Family; Visit Provider Internal Medicine Gastroenterology
DX: E78.5 Hyperlipidemia, unspecified (principal); E11.9 Type 2 diabetes mellitus without complications; I12.9 Hypertensive chronic kidney disease with stage 1 through stage 4 chronic kidney disease, or unspecified chronic kidney disease; N18.30 Chronic kidney disease, stage 3 unspecified; E03.9 Hypothyroidism, unspecified; I25.10 Atherosclerotic heart disease of native coronary artery without angina pectoris; K52.9 Noninfective gastroenteritis and colitis, unspecified
CPT/HCPCS: 82653; 87045; 87427; 87449

== ENCOUNTER 2024-05-09 16:20 | Outpatient (CLI) | payer MEDICARE, OTHER, SELFPAY ==
[2024-05-09 17:08] LABS: Influenza A QL RT-PCR Negative (Negative); Influenza B QL RT-PCR Negative (Negative); RSV RNA, RT-PCR Negative (Negative); SARS-CoV-2 RNA PCR Negative (Negative)
== END 2024-05-09 16:21 | disposition home or self-care (01) ==
LOC: ANHLAB 16:20
PROVIDERS: PCP Family Medicine; Visit Provider Family Medicine
DX: J06.9 Acute upper respiratory infection, unspecified (principal); Z20.822 Contact with and (suspected) exposure to COVID-19
CPT/HCPCS: 87637

== ENCOUNTER 2024-05-29 09:03 | Outpatient (CLI) | payer MEDICARE, OTHER, SELFPAY ==
[2024-05-29 13:37] LABS: Alanine Aminotransferase 9 U/L (6-35); Albumin Level 4.4 g/dL (3.5-5.1); Alkaline Phosphatase 67 U/L (38-126); Anion Gap 11 mmol/L (4-12); Aspartate Amino Transferase 27 U/L (14-36); Bilirubin,Total 0.7 mg/dL (0.2-1.3); Blood Urea Nitrogen 21 mg/dL (7-17); Calcium 9.2 mg/dL (8.4-10.2); Carbon Dioxide 20 mmol/L (22-30); Chloride 103 mmol/L (98-107); Cholesterol 89 mg/dL (0-200); Estimated Glomerular Filt Rate 49; Glucose 114 mg/dL (65-110); HDL Direct 40 mg/dL; Potassium 5.4 mmol/L (3.4-5.0); Sodium 134 mmol/L (137-145); Triglycerides 219 mg/dL (<150)
[2024-05-29 13:46] LABS: Basophils Absolute Auto 0.1 K/mm3 (0.0-0.1); Basophils Percent Auto 0.8 % (0.2-1.2); Eosinophils Absolute Auto 0.2 K/mm3 (0-0.3); Eosinophils Percent Auto 2.8 % (0-4.4); Hematocrit 28.5 % (37.0-47.0); Hemoglobin 7.7 g/dL (12.0-15.0); Immature Granulocyte Absolute 0.03 K/mm3 (0.00-0.031); Immature Granulocyte Percent A 0.4 % (0-0.5); Lymphocytes Absolute Auto 1.27 K/mm3 (0.9-3.2); Mean Corpuscular Hemoglobin 20.1 pg (26-34); Mean Corpuscular Volume 74.2 fl (80-100); Mean Platelet Volume 10.7 fl (7.4-10.4); Monocytes Absolute Auto 0.6 K/mm3 (0.1-0.6); Monocytes Percent Auto 8.8 % (2.6-8.5); Neutrophils Absolute Auto 4.9 K/mm3 (1.3-6.7); Neutrophils Percent Auto 69.2 % (45.5-73.1); Platelet Count Result 338 k/mm3 (150-375); Red Blood Count 3.84 M/mm3 (4.2-5.4); Red Cell Distribution Width 19.6 % (11.5-14.5); White Blood Count 7.1 K/mm3 (4.5-10.0)
[2024-05-29 13:48] LABS: LDL Cholesterol Direct < 30 mg/dL
[2024-05-29 13:52] LABS: Free T4 Free Thyroxine 1.36 ng/mL (0.78-2.19)
[2024-05-29 14:54] LABS: Hypochromasia 2+; Platelet Estimate Adequate (Adequate)
[2024-05-29 14:55] LABS: Ovalocytes 2+
[2024-05-29 14:56] LABS: Microcytosis 2+ (NORMAL); Schistocytes None Seen
[2024-05-29 18:54] LABS: Hemoglobin A1C 6.2 % (<5.7)
[2024-05-29 20:02] LABS: Creatinine Urine 116.8 mg/dL
[2024-05-29 20:06] LABS: MALB Creatinine Ratio 7.5 mg/g (0-30); Microalbumin Urine Random 8.8 mg/L (0-16.7)
== END 2024-05-29 09:04 | disposition home or self-care (01) ==
LOC: ANHGOSHLAB 09:04
PROVIDERS: PCP Nurse Practitioner Family; Visit Provider Nurse Practitioner Family
DX: E78.5 Hyperlipidemia, unspecified (principal); E11.9 Type 2 diabetes mellitus without complications; I10 Essential (primary) hypertension; E03.9 Hypothyroidism, unspecified
CPT/HCPCS: 36415; 80053; 80061; 82043; 83036; 84439; 85025

== ENCOUNTER 2024-06-06 10:59 | Outpatient (CLI) | payer MEDICARE, OTHER, SELFPAY ==
[2024-06-06 20:46] LABS: Alanine Aminotransferase 9 U/L (6-35); Albumin Level 4.2 g/dL (3.5-5.1); Alkaline Phosphatase 77 U/L (38-126); Anion Gap 13 mmol/L (4-12); Aspartate Amino Transferase 21 U/L (14-36); Bilirubin,Total 0.7 mg/dL (0.2-1.3); Blood Urea Nitrogen 23 mg/dL (7-17); Carbon Dioxide 20 mmol/L (22-30); Chloride 99 mmol/L (98-107); Estimated Glomerular Filt Rate 44; Glucose 311 mg/dL (65-110); Potassium 4.9 mmol/L (3.4-5.0); Sodium 132 mmol/L (137-145)
[2024-06-06 21:17] LABS: Thyroid Stimulating Hormone 0.432 uIU/mL (0.465-4.680)
== END 2024-06-06 11:00 | disposition home or self-care (01) ==
PROVIDERS: PCP Nurse Practitioner Family; Visit Provider Nurse Practitioner Family
DX: E03.9 Hypothyroidism, unspecified (principal); I10 Essential (primary) hypertension
CPT/HCPCS: 36415; 80053; 84443

== ENCOUNTER 2024-07-23 15:45 | Outpatient (CLI) | payer MEDICARE, OTHER, SELFPAY ==
[2024-07-23 15:58] LABS: Basophils Absolute Auto 0.1 K/mm3 (0.0-0.1); Basophils Percent Auto 0.9 % (0.2-1.2); Eosinophils Absolute Auto 0.5 K/mm3 (0-0.3); Eosinophils Percent Auto 5.5 % (0-4.4); Hematocrit 26.7 % (37.0-47.0); Hemoglobin 7.2 g/dL (12.0-15.0); Immature Granulocyte Absolute 0.03 K/mm3 (0.00-0.031); Immature Granulocyte Percent A 0.4 % (0-0.5); Lymphocytes Absolute Auto 1.65 K/mm3 (0.9-3.2); Lymphocytes Percent Auto 19.3 % (18.3-44.2); Mean Corpuscular Hemoglobin 19.6 pg (26-34); Mean Corpuscular Volume 72.6 fl (80-100); Mean Platelet Volume 9.2 fl (7.4-10.4); Monocytes Absolute Auto 0.7 K/mm3 (0.1-0.6); Neutrophils Absolute Auto 5.6 K/mm3 (1.3-6.7); Neutrophils Percent Auto 65.9 % (45.5-73.1); Platelet Count Result 331 k/mm3 (150-375); Red Blood Count 3.68 M/mm3 (4.2-5.4); Red Cell Distribution Width 18.8 % (11.5-14.5); White Blood Count 8.5 K/mm3 (4.5-10.0)
[2024-07-23 16:03] LABS: Hypochromasia 1+; Platelet Estimate Adequate (Adequate); Schistocytes None Seen
[2024-07-23 16:04] LABS: Anisocytosis 2+; Microcytosis 2+ (NORMAL); Ovalocytes 1+; Poikilocytosis 1+
[2024-07-23 16:56] LABS: Iron 27 ug/dL (37-170)
[2024-07-23 17:03] LABS: Alanine Aminotransferase 10 U/L (6-35); Albumin Level 4.3 g/dL (3.5-5.1); Alkaline Phosphatase 93 U/L (38-126); Anion Gap 11 mmol/L (4-12); Aspartate Amino Transferase 16 U/L (14-36); Bilirubin,Total 0.7 mg/dL (0.2-1.3); Blood Urea Nitrogen 20 mg/dL (7-17); Calcium 9.7 mg/dL (8.4-10.2); Carbon Dioxide 22 mmol/L (22-30); Chloride 106 mmol/L (98-107); Estimated Glomerular Filt Rate 45; Glucose 158 mg/dL (65-110); Potassium 4.2 mmol/L (3.4-5.0); Sodium 139 mmol/L (137-145)
[2024-07-23 17:05] LABS: Percent Iron Saturation 7 % (20-50)
[2024-07-23 17:32] LABS: Ferritin 6.94 ng/mL (11.1-264)
[2024-07-23 18:21] LABS: Folic Acid 7.9 ng/mL (2.76->20); Vitamin B12 > 1000.0 pg/mL (239-931)
== END 2024-07-23 15:46 | disposition home or self-care (01) ==
PROVIDERS: PCP Nurse Practitioner Family; Visit Provider Internal Medicine Hematology & Oncology
DX: D64.9 Anemia, unspecified (principal)
CPT/HCPCS: 36415; 80053; 82607; 82728; 82746; 83540; 83550; 85025

== ENCOUNTER 2024-08-02 00:44 | Day surgery (SDC) | payer MEDICARE, OTHER, SELFPAY ==
[2024-07-31 09:34] VITALS: BMI 29.2
--- NOTE | 2024-08-01 15:34 | WPDANESEPPF ---
Anes - Initial Pre Proc Eval Procedure: Operation Date: 08/02/24 08:00 Proposed Procedures p Esophagogastroduodenoscopy - Scott Pickett MD Date/Time: 08/01/24 15:34 Surgeon: Scott Pickett MD Pre Op Diagnosis: Iron deficiency anemia Patient Data Age: 74 Gender: F Height: 1.57 m Weight: 72.5 kg Allergies Allergy/AdvReac Type Severity Reaction Status Date / Time codeine Allergy Severe Swelling Verified 08/02/24 06:43 of Lip/Tongue/Throat Home Medications ?Medication ?Instructions ?Recorded ?Confirmed ?Type aspirin 81 mg chewable tablet 81 mg PO DAILY 08/13/19 08/02/24 History (Bertram Chewable Low Dose Aspirin) atorvastatin 20 mg tablet 20 mg PO DAILY 08/13/19 08/02/24 History lisinopril 20 mg tablet 20 mg PO DAILY 08/13/19 08/02/24 History calcium 600 mg (as 1 cap PO DAILY 04/21/20 08/02/24 History carbonate)-vitamin D3 5 mcg (200 unit) capsule (Calcium 600 + D(3)) pantoprazole 40 mg tablet,delayed 40 mg PO DAILY #90 tabs 01/09/21 08/02/24 Rx release cholecalciferol (vitamin D3) 50 50 mcg PO DAILY #90 caps 03/24/21 08/02/24 Rx mcg (2,000 unit) capsule carvedilol 3.125 mg tablet 3.125 mg PO BID 08/30/22 08/02/24 History albuterol sulfate 90 mcg/actuation 1 puff inhalation Q4H PRN 05/09/24 07/31/24 Rx aerosol inhaler shortness of breath or wheezing #8.5 grams anastrozole 1 mg tablet 1 mg PO DAILY #90 tabs 05/14/24 08/02/24 Rx citalopram 10 mg tablet 10 mg PO DAILY #90 tabs 05/14/24 08/02/24 Rx fluticasone propionate 50 2 spray intranasal DAILY PRN nasal 05/14/24 08/02/24 Rx mcg/actuation nasal congestion #9.9 mL spray,suspension (Flonase Allergy Relief) hydroxyzine HCl 25 mg tablet See Rx Instructions PO QHS PRN 05/14/24 08/02/24 Rx sleep #60 tabs glucose 4 gram chewable tablet 4 g PO Q15M PRN hypoglycemia #30 05/24/24 08/02/24 Rx tabs Dexcom #1 ea 05/30/24 06/01/24 Rx Dexcom CGM #1 ea 05/30/24 06/01/24 Rx glipizide 10 mg tablet 5 mg (1/2 x 10 mg) PO DAILY #45 05/30/24 08/02/24 Rx tabs pen needle, diabetic 31 gauge x #100 ea 07/12/24 Rx 3/16 (Pen Needle) levothyroxine 100 mcg tablet 100 mcg PO DAILY #90 tabs 07/13/24 08/02/24 Rx sitagliptin phos 50 mg-metformin 1 tablet PO DAILY #90 tabs 07/13/24 08/02/24 Rx ER 1,000 mg tablet,extend rel 24h mp (Janumet XR) Lantus Solostar U-100 Insulin 100 4 unit (0.04 mL) subcut DAILY #15 07/19/24 08/02/24 Rx unit/mL (3 mL) subcutaneous pen mL (insulin glargine) hydrochlorothiazide 12.5 mg tablet 12.5 mg PO DAILY #90 tabs 07/24/24 08/02/24 Rx Patient hx anesthesia problems: none Family hx anesthesia problems: none Results Review: All pre-operative results and documents have been reviewed as part of the pre-operative evaluation. [facility] Past Medical History Medical History (Updated 06/01/24 @ 17:36 by Fiona Osman NP) Breast cancer, left (~12/2023) Major depression Type 2 diabetes mellitus with chronic kidney disease (~2019) Keratosis Chronic diarrhea CKD (chronic kidney disease) stage 3, GFR 30-59 ml/min Osteopenia Actinic keratoses Central retinal vein occlusion of right eye Recurrent UTI OAB (overactive bladder) GERD without esophagitis Hypothyroid Hyperlipidemia CAD (coronary artery disease) Essential (primary) hypertension Surgical History Surgical History (Updated 05/14/24 @ 13:06 by Fiona Osman NP) Hx of left mastectomy (~12/2023) Hx of shoulder surgery (~06/2022) Rt humerus spiral fracture - ORIF at [place] History of tooth extraction History of coronary artery stent placement 12/2012 History of right cataract surgery 06/2019 History of tonsillectomy H/O colonoscopy (~03/2017) History of hysterectomy (~1985) Family History Family History Father Family history of cardiovascular disease Other Acute myocardial infarction Family history of malignant neoplasm of breast Family history of primary malignant neoplasm of liver Social History Social History Social History: Chanelle is , she is an product mgr, still working part-time. Caffeine-occasionally Smoking status: Never smoker Alcohol intake: never Substance use: never Substance use type: does not use Lack of Transportation: No Lack of Food: Never True Current Housing: I Have Housing Concerned About Future Housing: No Difficulty Paying Gas/Electric Bills: No Difficulty Paying for Meds: No Currently Unemployed: No Education: Master's Degree or Higher Difficulty w/ Childcare or Family Care: No Living arrangements: with family Additional living arrangements comments: 35 years/1 daughter 1 son 3 step sons 6 grandchildren Occupation/Education: retired Gender identity (if verbalized by the patient): Female Sexual Orientation (if Verbalized by the Patient): Straight or Heterosexual Spiritual care concerns: No Agree to blood products: Yes Anes - Eval Final PreProcedure Day of Procedure 08/01/24 15:34 Patient weight: overweight Heart: regular rate and rhythm Lungs: clear to auscultation Airway: Mallampati scale class II Neurological: alert and oriented Last oral intake: >/= 8 hours ASA classification: III Emergent: no Anesthetic plan: proceed Anesthesia type and monitoring: general GIVS and standard monitoring Results Review: All pre-operative results and documents have been reviewed as part of the pre-operative evaluation. Informed Consent: The patient's anesthetic plan and its attendant risks and benefits were discussed with the patient/family/POA. Questions were solicited and answers provided to the satisfaction of the patient/family/POA.
[2024-08-02 06:35] VITALS: BP 142/77; PULSE 84; RESP 18; O2SAT 100
[2024-08-02 06:45] VITALS: BMI 28.6
[2024-08-02] MEDS: LACTATED RINGERS 1,000 ML 150 ML IV CONT (06:49)
[2024-08-02 07:10] LABS: Glucose Point of Care 189 mg/dl (65-105)
--- NOTE | 2024-08-02 07:53 | P.HP_ITS ---
History of Present Illness History of Present Illness Consent: Risks, benefits, and alternatives have been discussed and questions answered. Patient agrees to proceed with procedure. Chief complaint: Iron deficiency anemia Narrative: Chanelle Montana is a 74 year old female here for egd because of lei, denies overt gib, colonoscopy 2022, she is seeing building serviceman Review of Systems Review of Systems: All systems reviewed & are unremarkable except as noted in HPI and below PMFSH Past Medical History Medical History (Updated 06/01/24 @ 17:36 by Fiona Osman NP) Breast cancer, left (~12/2023) Major depression Type 2 diabetes mellitus with chronic kidney disease (~2019) Keratosis Chronic diarrhea CKD (chronic kidney disease) stage 3, GFR 30-59 ml/min Osteopenia Actinic keratoses Central retinal vein occlusion of right eye Recurrent UTI OAB (overactive bladder) GERD without esophagitis Hypothyroid Hyperlipidemia CAD (coronary artery disease) Essential (primary) hypertension Surgical History Surgical History (Updated 05/14/24 @ 13:06 by Fiona Osman NP) Hx of left mastectomy (~12/2023) Hx of shoulder surgery (~06/2022) Rt humerus spiral fracture - ORIF at [place] History of tooth extraction History of coronary artery stent placement 12/2012 History of right cataract surgery 06/2019 History of tonsillectomy H/O colonoscopy (~03/2017) History of hysterectomy (~1985) Family History Family History Father Family history of cardiovascular disease Other Acute myocardial infarction Family history of malignant neoplasm of breast Family history of primary malignant neoplasm of liver Social History Social History Social History: Chanelle is , she is an representative government relations, still working part-time. Caffeine-occasionally Smoking status: Never smoker Alcohol intake: never Substance use: never Substance use type: does not use Lack of Transportation: No Lack of Food: Never True Current Housing: I Have Housing Concerned About Future Housing: No Difficulty Paying Gas/Electric Bills: No Difficulty Paying for Meds: No Currently Unemployed: No Education: Master's Degree or Higher Difficulty w/ Childcare or Family Care: No Living arrangements: with family Additional living arrangements comments: 35 years/1 daughter 1 son 3 step sons 6 grandchildren Occupation/Education: retired Gender identity (if verbalized by the patient): Female Sexual Orientation (if Verbalized by the Patient): Straight or Heterosexual Spiritual care concerns: No Agree to blood products: Yes Meds Home Medications and Allergies Home Medications ?Medication ?Instructions ?Recorded ?Confirmed ?Type aspirin 81 mg chewable tablet 81 mg PO DAILY 08/13/19 08/02/24 History (Bertram Chewable Low Dose Aspirin) atorvastatin 20 mg tablet 20 mg PO DAILY 08/13/19 08/02/24 History lisinopril 20 mg tablet 20 mg PO DAILY 08/13/19 08/02/24 History calcium 600 mg (as 1 cap PO DAILY 04/21/20 08/02/24 History carbonate)-vitamin D3 5 mcg (200 unit) capsule (Calcium 600 + D(3)) pantoprazole 40 mg tablet,delayed 40 mg PO DAILY #90 tabs 01/09/21 08/02/24 Rx release cholecalciferol (vitamin D3) 50 50 mcg PO DAILY #90 caps 03/24/21 08/02/24 Rx mcg (2,000 unit) capsule carvedilol 3.125 mg tablet 3.125 mg PO BID 08/30/22 08/02/24 History albuterol sulfate 90 mcg/actuation 1 puff inhalation Q4H PRN 05/09/24 07/31/24 Rx aerosol inhaler shortness of breath or wheezing #8.5 grams anastrozole 1 mg tablet 1 mg PO DAILY #90 tabs 05/14/24 08/02/24 Rx citalopram 10 mg tablet 10 mg PO DAILY #90 tabs 05/14/24 08/02/24 Rx fluticasone propionate 50 2 spray intranasal DAILY PRN nasal 05/14/24 08/02/24 Rx mcg/actuation nasal congestion #9.9 mL spray,suspension (Flonase Allergy Relief) hydroxyzine HCl 25 mg tablet See Rx Instructions PO QHS PRN 05/14/24 08/02/24 Rx sleep #60 tabs glucose 4 gram chewable tablet 4 g PO Q15M PRN hypoglycemia #30 05/24/24 08/02/24 Rx tabs Dexcom #1 ea 05/30/24 06/01/24 Rx Dexcom CGM #1 ea 05/30/24 06/01/24 Rx glipizide 10 mg tablet 5 mg (1/2 x 10 mg) PO DAILY #45 05/30/24 08/02/24 Rx tabs pen needle, diabetic 31 gauge x #100 ea 07/12/24 Rx 3/16 (Pen Needle) levothyroxine 100 mcg tablet 100 mcg PO DAILY #90 tabs 07/13/24 08/02/24 Rx sitagliptin phos 50 mg-metformin 1 tablet PO DAILY #90 tabs 07/13/24 08/02/24 Rx ER 1,000 mg tablet,extend rel 24h mp (Janumet XR) Lantus Solostar U-100 Insulin 100 4 unit (0.04 mL) subcut DAILY #15 07/19/24 08/02/24 Rx unit/mL (3 mL) subcutaneous pen mL (insulin glargine) hydrochlorothiazide 12.5 mg tablet 12.5 mg PO DAILY #90 tabs 07/24/24 08/02/24 Rx Allergies Allergy/AdvReac Type Severity Reaction Status Date / Time codeine Allergy Severe Swelling Verified 08/02/24 06:43 of Lip/Tongue/Throat Exam Const: General: comfortable and no acute distress HENMT: Face/Nose/Sinus: Normal nares present Eyes: General: appearance normal, both eyes and all related structures Neck: Neck: no JVD Resp: Auscultation: clear to auscultation bilaterally Cardio: Rate: regular rate Rhythm: regular rhythm GI: Inspection: non-distended GI Palp: Yes Soft to palpation Skin: General skin exam: normal color Neuro: Speech: normal speech Extrem: General: normal to inspection Psych: Mental Status: mental status grossly normal Assessment and Plan Assessment and plan (1) Iron deficiency anemia: Qualifiers: Iron deficiency anemia type: unspecified iron deficiency Qualified Code(s): D50.9 - Iron deficiency anemia, unspecified Code(s): D50.9 - Iron deficiency anemia, unspecified Status: Acute Assessment and Plan: egd to assess if gi source of anemia (2) Breast cancer, left: Onset Date: ~12/2023 Qualifiers: Breast location: unspecified site of breast Estrogen receptor status: positive Patient sex: female Qualified Code(s): C50.912 - Malignant neoplasm of unspecified site of left female breast; Z17.0 - Estrogen receptor positive status [ER+] Code(s): C50.912 - Malignant neoplasm of unspecified site of left female breast Status: Acute
[2024-08-02 08:02] VITALS: BP 87/38; PULSE 73; RESP 22; O2SAT 98
[2024-08-02 08:12] VITALS: BP 86/39; PULSE 80; RESP 20; O2SAT 97
[2024-08-02 08:22] VITALS: BP 108/50; PULSE 69; RESP 20; O2SAT 97
== END 2024-08-02 08:35 | disposition home or self-care (01) ==
PROVIDERS: PCP Nurse Practitioner Family; Visit Provider Internal Medicine Gastroenterology
PROC: 0DJ08ZZ Inspection of Upper Intestinal Tract, Via Natural or Artificial Opening Endoscopic (ICD-10-PCS; CPT 43239; principal; 2024-08-02 08:00)
DX: D50.9 Iron deficiency anemia, unspecified (principal); K29.50 Unspecified chronic gastritis without bleeding; I12.9 Hypertensive chronic kidney disease with stage 1 through stage 4 chronic kidney disease, or unspecified chronic kidney disease; E11.22 Type 2 diabetes mellitus with diabetic chronic kidney disease; N18.30 Chronic kidney disease, stage 3 unspecified; Z79.84 Long term (current) use of oral hypoglycemic drugs; Z79.4 Long term (current) use of insulin; Z85.3 Personal history of malignant neoplasm of breast
CPT/HCPCS: 43239; 82948; 88305; J2003; J2704; J7120

== ENCOUNTER 2024-10-09 14:52 | Outpatient (CLI) | payer MEDICARE, OTHER, SELFPAY ==
[2024-10-09 15:09] LABS: Basophils Absolute Auto 0.1 K/mm3 (0.0-0.1); Basophils Percent Auto 0.8 % (0.2-1.2); Eosinophils Absolute Auto 0.3 K/mm3 (0-0.3); Eosinophils Percent Auto 4.7 % (0-4.4); Hematocrit 36.8 % (37.0-47.0); Hemoglobin 11.5 g/dL (12.0-15.0); Immature Granulocyte Absolute 0.02 K/mm3 (0.00-0.031); Immature Granulocyte Percent A 0.3 % (0-0.5); Lymphocytes Absolute Auto 1.44 K/mm3 (0.9-3.2); Lymphocytes Percent Auto 22.5 % (18.3-44.2); Mean Corpuscular HGB Conc 31.3 g/dl (32-36); Mean Corpuscular Hemoglobin 25.6 pg (26-34); Mean Corpuscular Volume 81.8 fl (80-100); Mean Platelet Volume 9.8 fl (7.4-10.4); Monocytes Absolute Auto 0.4 K/mm3 (0.1-0.6); Monocytes Percent Auto 6.4 % (2.6-8.5); Neutrophils Absolute Auto 4.2 K/mm3 (1.3-6.7); Neutrophils Percent Auto 65.3 % (45.5-73.1); Platelet Count Result 202 k/mm3 (150-375); White Blood Count 6.4 K/mm3 (4.5-10.0)
[2024-10-09 15:15] LABS: Platelet Estimate Adequate (Adequate); Schistocytes None Seen
[2024-10-09 15:19] LABS: Hypochromasia 1+; Microcytosis 1+ (NORMAL); Ovalocytes 1+
--- OUTSIDE RECORDS SUMMARY | 2024-10-09 16:22 | XMS_ITS ---
Author Organization [facility] [place] [address] Address [address] [place] [address] Care Team Providers Care Equine Pharmacology Technician Name Role Phone Alton Myrick MD Primary Care Provider Nyasia Jackson MD PhD Unavaila ble Active Problems Problem Noted Date Diagnosed Date DCIS (ductal carcinoma in situ) 02/10/2024 Papilloma of left breast 12/23/2023 Ductal carcinoma in situ (DCIS) of left breast 0 12/23/2023 Mass of left breast 11/07/2023 Anemia, unspecified 12/20/2022 Closed displaced oblique fra cture of shaft of right humerus, initial encounter 06/24/2022 Closed fracture of shaft of right humerus 2021 Overview (06/22/2022): Added automatically from request for surgery [id number] Hyperlipidemia associated with type 2 diabetes m kumaritus 04/20/2021 Abnormal carotid pulse 03/26/2019 Hypercholesteremia 03/21/2017 Coronary artery disease invo lving [place] coronary artery of [place] heart without angina pectoris 09/10/2014 Overview (10/15/2016): Coronary atherosclerosis Essential hypertension 09/10/2014 Overview (10/15/2016): Essential hypertension Hypothyroidism 09/10/2014 Overview (10/15/2016): Hypothyroidism Current Treatment and Therapy Plans No current plan information found. Past Treatment and Therapy Plans No past plan information found. Lifetime Dose Tracking * Chemical Lifetime Dose Automatic Entry Manual Entr y Fluoro Time 0.712 minutes 0.712 minutes 0 minutes Air kerma at the reference point (Ka,r) 8.86 mGy 8 .86 mGy 0 mGy Resolved Problems Problem Noted Date Diagnosed Date Resolved Date Chest pain 09/10/2014 04/20/2021 Overview (10/15/2016): Chest pain
--- OUTSIDE RECORDS SUMMARY | 2024-10-09 16:22 | XMS_ITS | Referral Summary ---
Author Organization [facility] [address] Address [address] [place] [address] Care Team Providers Care Bakery Deliverer Name Role Phone Alton Myrick MD Primary Care Provider Nyasia Jackson MD PhD Unavaila ble Encounters Date Type Department Care Team Description 07/26/[address] [facility] Surgery [address] [place] [address] [address] [place] [address] Nyasia Jackson, PhD History of left mastectomy (Primary Dx); Encounter for screening mammogram for malignant neoplasm of breast 07/26/2024 2:17 PM CONSTRUCTION DRILLER - 07/26/2024 11:59 PM CONSTRUCTION DRILLER Hospital Encounter [facility] - Breast Imaging [address] [place] [address] 8 [place] [address] History of partial mastectomy of left breast; Ductal carcinoma in situ (DCIS) of left breast; Encounter for screening mammogram for malignant neoplasm of breast Discharge Disposition: Discharge to home or self care 07/26/2024 2:30 PM CONSTRUCTION DRILLER Office Visit [facility] Surgery [address] [place] [address] [address] [place] [address] Nyasia Jackson MD PhD Encounter for follow-up surveillance of breast cancer (Primary Dx); History of left mastectomy; Ductal carcinoma in situ (DCIS) of left breast from Last 3 Months Allergies Active Allergy Reactions Criticality Noted Date Comments Codeine Anaphylaxis High Medications sitaGLIPtin-metfo rmin (JANUMET XR) 50-1,000 mg tablet, ER multiphase 24 hr take 2 tablet by oral route every day with the evening meal, swallowing whole. Do not crush, chew and/or divide. 0 0 013 Active Additional Information Patient taking differently: 1 tablet oral 2 times daily, Indications: type 2 diabetes mellitus, Informant: Self, Reported on 02/06/2024 calcium carbonate/vitamin D3 (CALCIUM 600 + D,3, ORAL) Take 1 tablet by mouth every morning Active glipiZIDE (GLUCOTROL) 10 mg tablet Take 1-1.5 tablets (10-15 mg total) by mouth 2 (two) times a day before breakfast and lunch 1.5 tablets with breakfast 1 tablet with dinner 020 Active hydroCHLOROthiazi de (HYDRODIURIL) 12.5 mg tablet Take 1 tablet (12.5 mg total) by mouth every morning 020 Active Lantus Solostar U-100 Insulin 100 unit/mL (3 mL) insulin pen Inject 10 Units under the skin every morning 020 Active cholecalciferol (VITAMIN D-3) 2000 unit capsule Take 1 capsule (2,000 Units total) by mouth every morning Active aspirin 81 mg enteric coated tabletIndications :Myocardial Reinfarction Prevention Take 1 tablet (81 mg total) by mouth 2 (two) times a day for 14 days 28 tablet 022 Active Additional Information Patient taking differently:81 mg oralNightly, Indications: Myocardial Reinfarction Prevention, Informant: Self, Reported on 01/20/2024 Accu-Chek Alma Plus test strp strip USE TO CHECK BLOOD SUGAR THREE TIMES DAILY 023 Active BD Ultra-Fine Mini Pen Needle 31 gauge x /16 needle as directed 023 Active cyanocobalamin (Vitamin B-12) 1,000 mcg tablet Take 1 tablet (1,000 mcg total) by mouth every morning Active acidophilus-pecti n, citrus 100 million cell-10 mg capsule Take 1 tablet by mouth every morning Active levothyroxine (SYNTHROID) 100 mcg tablet Take 1 tablet (100 mcg total) by mouth nightly Active docusate sodium (COLACE) 100 mg capsule Take 1 capsule (100 mg total) by mouth 2 (two) times a day with a glass of water 8 capsule Active Additional Information Patient taking differently:100 mg oral2 times daily PRN, with a glass of water, Informant: Self, Reported on 02/11/2024 acetaminophen (TYLENOL) 500 mg tablet Take 2 tablets (1,000 mg total) by mouth every 6 (six) hours as needed for pain Active phenylephrine HCl/acetaminophn (TYLENOL SINUS HEADACHE ORAL) Take 1 tablet by mouth as needed Active cyclobenzaprine (FLEXERIL) 5 mg tablet Take 1 tablet (5 mg total) by mouth 3 (three) times a day as needed for muscle spasms 30 tablet Active Additional Information Patient not taking.Reported on 07/26/2024 ondansetron ODT (ZOFRAN-ODT) 4 mg disintegrating tabletIndications :nausea and vomiting Take 1 tablet (4 mg total) by mouth every 6 (six) hours as needed for nausea or vomiting 20 tablet Active Additional Information Patient not taking.Reported on 07/26/2024 oxyCODONE (ROXICODONE) 5 mg immediate release tabletIndications :Pain Take 1 tablet (5 mg total) by mouth every 4 (four) hours as needed for pain 20 tablet Active Additional Information Patient not taking.Reported on 07/26/2024 lisinopriL (PRINIVIL,ZESTRIL ) 20 mg tabletIndications :Essential hypertension TAKE 1 TABLET(20 MG) BY MOUTH DAILY 90 tablet [address] (PROTONIX) 40 mg EC tablet TAKE 1 TABLET(40 MG) BY MOUTH DAILY 90 tablet 1 Active anastrozole (ARIMIDEX) 1 mg tabletIndications :Ductal carcinoma in situ (DCIS) of left breast Take 1 tablet (1 mg total) by mouth daily 30 tablet 11 025 2025 Active atorvastatin (LIPITOR) 20 mg tabletIndications :hyperlipidemia Take 1 tablet (20 mg total) by mouth nightly 90 tablet 1 02/10/2 025 Active carvediloL (COREG) 6.25 mg tablet TAKE 2 TABLETS(12.5 MG) BY MOUTH TWICE DAILY WITH MEALS 360 tablet 1 025 Active carvediloL (COREG) 6.25 mg tabletIndications :Myocardial Reinfarction Prevention,hypert ension Take 2 tablets (12.5 mg total) by mouth 2 (two) times a day with meals 360 tablet 024 2024 Discontinued carvediloL (COREG) 6.25 mg tablet TAKE 2 TABLETS(12.5 MG) BY MOUTH TWICE DAILY WITH MEALS 360 tablet 025 2024 Discontinued Active Problems Problem Noted Date Diagnosed Date [...] (06/22/2022): Added automatically from request for surgery [id number] Hyperlipidemia associated with type 2 diabetes m kumaritus 04/20/2021 Abnormal carotid pulse 03/26/2019 Hypercholesteremia 03/21/2017 Coronary artery disease invo lving igiugig coronary artery of igiugig heart without angina pectoris 09/10/2014 Overview (10/15/2016): Coronary atherosclerosis Essential hypertension 09/10/2014 Overview (10/15/2016): Essential hypertension Hypothyroidism 09/10/2014 Overview (10/15/2016): Hypothyroidism Resolved Problems Problem Noted Date Diagnosed Date Resolved Date Chest pain 09/10/2014 04/20/2021 Overview (10/15/2016): Chest pain Immunizations Immunization Administration Dates Next Due Influenza, Quad, Adjuvantated, Intramuscular Influenza, Quadrivalent, Hig h Dose, Preservative Free, Intrr 04/07/2023,04/18/2022 Influenza, Quadrivalent, Spl it, Preservative Free, Intramuscular 03/28/2021 Influenza, Trivalent, High D ose, Split, Preservative Free, Intramuscular 05/07/2019 Influenza, Trivalent, Preservative Free, Intramu scular 03/31/2020 Pneumococcal Conjugate Pcv20 04/26/2023 RSV, Bivalent, Protein Subun it Rsvpref, Diluent (Abrysvo) 04/07/2023 ZOSTER LIVE 01/13/2016,07/11/2014 Social History Tobacco Use Types Packs/Day Years Used Date Smoking Tobacco: Never Passive Smoke Exposure: Past Smokeless Tobacco: Never Tobacco Cessation:Counseling Given: Not Answered Alcohol Use Standard Drinks/Week Comments Yes 0 [...] on file Legal Sex Female 4:22 PM CONSTRUCTION DRILLER Gender Identity Not on file Sexual Orientation Not on file Last Filed Vital Signs Vital Sign Reading Time Taken Comments Blood Pressure 130/74 07/26/2024 2:45 PM CONSTRUCTION DRILLER Pulse 72 07/26/2024 2:45 PM CONSTRUCTION DRILLER Temperature 36.8 C (98.3 F) 07/26/2024 2:45 PM CONSTRUCTION DRILLER Respiratory Rate 18 07/26/2024 2:45 PM CONSTRUCTION DRILLER Oxygen Saturation 96% 07/26/2024 2:45 PM CONSTRUCTION DRILLER Inhaled Oxygen Concentration - - Weight 72.1 kg (159 lb) 07/26/2024 2:45 PM CONSTRUCTION DRILLER Height 157.5 cm (5' 2 ) 07/26/2024 2:45 PM CONSTRUCTION DRILLER Body Mass Index 29.08 07/26/2024 2:45 PM CONSTRUCTION DRILLER Plan of Treatment Not on file Medical Devices Implanted Type Area Repair Electric Motor Assembler Device Identifier Shelf Expiration Date Model / Serial / Lot Cardiac Stent X4 Implanted:Qty: 3 Stent N/A: Heart Synthes 2.7mm 5mm 22mm 2.5mm Self Tap Stardrive Cortical T8 Screw Bone 202.882 - [id number] Implanted:Qty: 2 on 06/24/2022 by Sam Posadas MD at [facility] Synthes I 202.882 / / Synthes 2.7mm 5mm 24mm 2.5mm Self Tap Stardrive Cortical T8 Screw Bone 202.884 - [id number] Implanted:Qty: 1 on 06/24/2022 by Sam Posadas MD at [facility] Synthes I 202.884 / / Synthes Lcp Combi Philos Long [id number] 8 Hole Shaft Lock Compression 241.921 - [id number] Implanted:Qty: 1 on 06/24/2022 by Sam Posadas MD at [facility] Synthes I 241.921 / / Synthes Lc-Dcp 3.5mm 30mm Cortical Screw Bone Titanium Nonsterile Small 204.030 - [id number] Implanted:Qty: 1 on 06/24/2022 by Sam Posadas MD at [facility] Synthes I 204.030 / / Synthes 3.5mm 6mm 24mm 2.5mm Self Tap Small Hexagonal Socket Low Profile 204.824 - [id number] Implanted:Qty: 1 on 06/24/2022 by Sam Posadas MD at [facility] Synthes I 204.824 / / Synthes 3.5mm 2.9mm 22mm Self Tap Lock Stardrive Conical Head T15 Full 212.107 - [id number] Implanted:Qty: 2 on 06/24/2022 by Sam Posadas MD at [facility] Synthes I 212.107 / / Synthes 3.5mm 2.9mm 44mm Self Tap Lock Stardrive Conical Head T15 Full 212.134 - [id number] Implanted:Qty: 3 on 06/24/2022 by Sam Posadas MD at [facility] Synthes I 212.134 / / Synthes 3.5mm 2.9mm 46mm Self Tap Lock Stardrive Conical Head T15 Full 212.136 - [id number] Implanted:Qty: 1 on 06/24/2022 by Sam Posadas MD at [facility] Synthes I 212.136 / / [employer] Ultraclip Bard 17ga 10cm 2 Trigger Permanent Ultrasound [id number] - [id number] Implanted:Qty: 1 on 11/14/2023 at [facility] [employer] [id number] / / [employer] Ultraclip Bard 17ga 10cm 2 Trigger Permanent Ultrasound [id number] - [id number] Implanted:Qty: 1 on 11/14/2023 at [facility] [employer] [id number] / / [employer] Horton 20ga 7.5cm 2 Part Stabilizer Repositionable Depth Espinoza [id number] - [id number] Implanted:Qty: 2 on 01/06/2024 at [facility] [employer] [id number] 05/05/2028 [id number] / / [id number] Procedures Procedure Name Priority Date/Time Associated Diagnosis Comments SCREENING MAMMOGRAM RIGHT W TE UNILATERAL ONLY Schedule Routine, Read Routine (OP Routine) 07/26/2024 3:42 PM CONSTRUCTION DRILLER 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 Encounter for screening mammogram for malignant neoplasm of breast POCT LIPID PANEL Routine 12/28/2023 1:17 PM CDT Lipid screening EGFR Routine 06/25/2022 6:31 AM CONSTRUCTION DRILLER POCT HEMOGLOBIN A1C Routine 06/22/2022 4:16 PM CONSTRUCTION DRILLER from Last 3 Months or Most Recently Relevant to Health Maintenance Results * Screening Mammogram Right W Te Unilateral Only (07/26/2024 3:42 PM CONSTRUCTION DRILLER) Anatomical Region Laterality Modality Breast Right Mammography Narrative 07/27/2024 10:09 AM CONSTRUCTION DRILLER Mammogram Technique: Right Breast Digital Breast Tomosynthesis, Unilateral C-view 2D Screening mammogram. Views obtained: right craniocaudal and right mediolateral oblique. Computer Aided Detection was performed. Mammogram Findings: The present examination has been compared to prior imaging studies performed at [facility] on 04/08/2022, 08/04/2023 and 09/05/2023. There are scattered areas of fibroglandular density. There is no suspicious abnormality in the right breast. Patient status post contralateral mastectomy for personal history of breast cancer. Impression: There is no mammographic evidence of malignancy. Annual screening mammography is recommended. OVERALL FINAL ASSESSMENT: BI-RADS CATEGORY 1: Negative. Procedure Note Horacio Henry MD - 07/27/2024 Mammogram Technique: Right Breast Digital Breast Tomosynthesis, Unilateral C-view 2DScreening mammogram. Views obtained: right craniocaudal and right mediolateral oblique. Computer Aided Detection was performed. Mammogram Findings: The present examination has been compared to prior imaging studies performed at [facility] on 04/08/2022, 08/04/2023 and 09/05/2023. There are scattered areas of fibroglandular density. There is no suspicious abnormality in the right breast. Patient status post contralateral mastectomy for personal history ofbreast cancer. Impression: There is no mammographic evidence of malignancy. Annual screening mammography is recommended. OVERALL FINAL ASSESSMENT: BI-RADS CATEGORY 1: Negative. Nyasia Jackson MD PhD IMG MAMMO PROCEDURES Final Result * POCT lipid panel (12/28/2023 1:17 PM CDT) Cholesterol, POC 100 mg/dL HDL, POC 33 mg/dL Triglycerides, POC 215 mg/dL LDL Cholesterol POC 39 mg/dL Chol/HDL Ratio, POC - Non-HDL Cholesterol, POC - mg/dL Cholesterol Total, POC 100 mg/dL Capillary blood 12/28/2023 1 :17 PM CDT Ignacia Santamaria NP POINT OF CARE TEST ORDERABLE S Final Result * (ABNORMAL) eGFR (06/25/2022 6:31 AM CONSTRUCTION DRILLER) eGFR 51(L) 90 - 130 mL/min/1. 73 m2 [facility] Comment: Interpretive Data Reference Interval Normal >/= 90 mL/min/1.73m2 Mildly decreased* 60 - 89 mL/min/1.73m2 Mildly to moderately decreased 45 - 59 mL/min/1.73m2 Moderately to severely decreased 30 - 44 mL/min/1.73m2 Severely decreased 15 - 29 mL/min/1.73m2 Kidney Failure < 15 mL/min/1.73m2 *Relative to young adult level Estimated glomerular filtration rate is determined by the 2020 CKD-EPI equation recommended by the National Kidney Foundation (A Unifying Approach to GFR Estimation: Recommendations of the NKF-ASK Task Force on Reassessing the Inclusion of Race in Diagnosing Kidney Disease, JASN 2020). The CKD-EPI equation should not be used for patients with unstable renal function and has not been validated in children and those over 70. Current interpretive data was last reviewed 2021. Blood 06/25/2022 6:31 AM CONSTRUCTION DRILLER 06/25/2022 6:41 AM CONSTRUCTION DRILLER Sam Posadas MD LAB BLOOD ORDERA BLES Final Result [facility] [place] [address] * (ABNORMAL) POCT hemoglobin A1c (06/22/2022 4:16 PM CONSTRUCTION DRILLER) Hgb A1C, POC 6.6(H) 4.0 - 5.6 % [facility] Est Average Gluc POC 143 mg/dL [facility] Comment: The ADA recommends reporting an estimated Average Glucose (eAG) with all Hemoglobin A1c results using the equation derived from a study of 507 normal and diabetic adults. Minority populations were underrepresented and children were not included. (Diabetes Care 31:1921-8126, 2008). The eAG is not equivalent to a fasting glucose. Blood 06/22/2022 4:16 PM CONSTRUCTION DRILLER 06/22/2022 4:16 PM CONSTRUCTION DRILLER Sam Posadas MD POINT OF CARE TE ST ORDERABLES Final Result [facility] [place] [address] from Last 3 Months or Most Recently Relevant to Health Maintenance Insurance MEDICARE COMMERCIAL GENERIC COMMERCIAL GENERIC MEDICARE MEDICARE [place] [id number] [facility] Advance Directives For more information, please contact: [phone] * Full Code (Latest Code Status on File) Date Activated Date Inactivated Comments 02/10/2024 2:08 PM 02/11/2024 10:07 PM * Full Code Date Activated Date Inactivated Comments 06/24/2022 6:44 PM 06/25/2022 7:30 PM Care Teams Bakery Deliverer Relationship Specialty Start Date End Date Alton Myrick MD PCP - General Family Practice 04/07/20 Nyasia Jackson MD PhD [id number] [place] [address] Surgeon Surgical Oncology 01/06/24
--- OUTSIDE RECORDS SUMMARY | 2024-10-09 16:22 | XMS_ITS | Encounter Summary ---
Author Organization [facility] Healthcare Address [address] [place] [address] Care Team Providers Care Incident Commander Name Role Phone Alan Herrera MD Primary Care Provider [phone] Reason for Visit * Diagnostic Imaging (Routine) - Pending Review Specialty Diagnoses / Procedures Referred By Abisai balderrama Referred To Contact Procedures Breast Imaging Screening Outside Reference Transcribed Order, Provider Referral ID Status Reason Start Date Expiration Date V isits Requested Visits Authorized [id number] Pending Review 10/20/2023 11/18/2024 1 1 Encounter Details Date Type Department Care Team (Late st Contact Info) Description 08/24/2019 Hospital Encounter [facility] [address] [place] [id number] Social History Tobacco Use Types Packs/Day Years [...] on file Legal Sex Female 4:22 PM SOIL SURVEYOR Gender Identity Not on file Sexual Orientation Not on file documented as of this encounter Functional Status * Audit-C Score Answer Date of Assessment Author 0 [...] SCREENING OUTSIDE REFERENCE Routine 08/24/2019 12:00 AM SOIL SURVEYOR documented in this encounter Results * Breast Imaging Screening Outside Reference (08/24/2019 12:00 AM SOIL SURVEYOR) Impressions [facility] - 10/20/2023 9:38 AM CDT These images are for Reference purposes only and have not been reviewed by [facility] Radiology. There will be no report generated by a [facility] Radiologist. Narrative [facility] - 10/20/2023 9:38 AM CDT EXAMINATION: Images For Reference Purposes Only us Provider Transcribed Order IMG MAMMO PROCEDURES Final Result [facility] documented in this encounter Visit Diagnoses Not on filedocumented in this encounter Care Teams Incident Commander Relationship Specialty Start Date End Date Alan Herrera MD [address] [place] [address] PCP - General 09/21/17 04/06/20 documented as of this encounter
--- OUTSIDE RECORDS SUMMARY | 2024-10-09 16:22 | XMS_ITS | Clinical Summary ---
Author Organization [facility] [address] Address [address] [place] [address] Care Team Providers Care Residential Aide Name Role Phone Alton Myrick MD Primary Care Provider Nyasia Jackson MD PhD Unavaila ble Allergies Active Allergy Reactions Criticality Noted Date [...] (12.5 mg total) by mouth every morning 07/14/2 020 Active Lantus Solostar U-100 Insulin 100 unit/mL (3 mL) insulin pen Inject 10 Units under the skin every morning Active cholecalciferol (VITAMIN D-3) 2000 unit capsule Take 1 capsule (2,000 Units total) by mouth every morning Active aspirin 81 mg enteric coated tabletIndications :Myocardial Reinfarction Prevention Take 1 tablet (81 mg total) by mouth 2 (two) times a day for 14 days 28 tablet Active Additional Information Patient taking differently:81 mg oralNightly, Indications: Myocardial Reinfarction Prevention, Informant: Self, Reported on 01/20/2024 Accu-Chek Alma Plus test strp strip USE TO CHECK BLOOD SUGAR THREE TIMES DAILY 023 Active BD Ultra-Fine Mini Pen Needle 31 gauge x 3/16 needle as directed Active cyanocobalamin (Vitamin B-12) 1,000 mcg tablet [...] needed for nausea or vomiting 20 tablet 024 Active Additional Information Patient not taking.Reported on 07/26/2024 oxyCODONE (ROXICODONE) 5 mg immediate release tabletIndications :Pain Take 1 tablet (5 mg total) by mouth every 4 (four) hours as needed for pain 20 tablet 024 Active Additional Information Patient not taking.Reported on 07/26/2024 lisinopriL (PRINIVIL,ZESTRIL ) 20 mg tabletIndications :Essential hypertension TAKE 1 TABLET(20 MG) BY MOUTH DAILY 90 tablet [address] (PROTONIX) 40 mg EC tablet TAKE 1 TABLET(40 MG) BY MOUTH DAILY 90 tablet 1 024 Active anastrozole (ARIMIDEX) 1 mg tabletIndications :Ductal carcinoma in situ (DCIS) of left breast Take 1 tablet (1 mg total) by mouth daily 30 tablet 11 025 2025 Active atorvastatin (LIPITOR) 20 mg tabletIndications :hyperlipidemia Take 1 tablet (20 mg total) by mouth nightly 90 tablet 1 025 Active carvediloL (COREG) 6.25 mg tablet [...] Closed fracture of shaft of right humerus 12/13/ 2022 Overview (06/22/2022): Added automatically from request for surgery [id number] Hyperlipidemia associated with type 2 diabetes m ellitus 04/20/2021 Abnormal carotid pulse 03/26/2019 Hypercholesteremia 03/21/2017 Coronary artery disease invo lving [place] coronary artery of [place] heart without angina pectoris 09/10/2014 Overview (10/15/2016): Coronary atherosclerosis Essential hypertension 09/10/2014 Overview (10/15/2016): Essential hypertension Hypothyroidism 09/10/2014 Overview (10/15/2016): Hypothyroidism Resolved Problems Problem Noted Date Diagnosed Date Resolved Date Chest pain 09/10/2014 04/20/2021 Overview (10/15/2016): Chest pain Encounters Date Type Department Care Team Description 07/26/2024 2:30 PM FARM EQUIPMENT MECHANIC Office Visit [facility] Surgery [address] [place] [phone] Nyasia Jackson MD PhD Encounter for follow-up surveillance of breast cancer (Primary Dx); History of left mastectomy; Ductal carcinoma in situ (DCIS) of left breast 07/26/2024 2:17 PM FARM EQUIPMENT MECHANIC - 07/26/2024 11:59 PM FARM EQUIPMENT MECHANIC Hospital Encounter [facility] - Breast Imaging [address] [place] [address] [address] [place] [address] History of partial mastectomy of left breast; Ductal carcinoma in situ (DCIS) of left breast; Encounter for screening mammogram for malignant neoplasm of breast Discharge Disposition: Discharge to home or self care 07/26/2024 Orders Only [facility] Surgery [address] [place] [address] [address] [place] [address] Nyasia Jackson MD PhD History of left mastectomy (Primary Dx); Encounter for screening mammogram for malignant neoplasm of breast from Last 3 Months Immunizations Immunization Administration Dates Next Due Influenza, Quad, Adjuvantated, Intramuscular Influenza, Quadrivalent, Hig h Dose, Preservative Free, Intrr 04/07/2023,04/18/2022 Influenza, Quadrivalent, Spl it, Preservative Free, Intramuscular 03/28/2021 Influenza, Trivalent, High D ose, Split, Preservative Free, Intramuscular 05/07/2019 Influenza, Trivalent, Preservative Free, Intramu scular 03/31/2020 Pneumococcal Conjugate Pcv20 04/26/2023 RSV, Bivalent, Protein Subun it Rsvpref, Diluent (Abrysvo) 04/07/2023 ZOSTER LIVE 01/13/2016,07/11/2014 Surgical History Surgery Date Site/Laterality Comments HYSTERECTOMY 07/11/1986 - 07/10/1987 CATARACT EXTRACTION Bilateral 2020 right, 2021 left CARDIAC STENT PLACEMENT 07/11/2012 - 07/10/2013 x4 stents BREAST BIOPSY 11/14/2023 Left TUBAL LIGATION 07/11/1976 - 07/10/1977 ORIF HUMERUS FRACTURE 06/24/2022 Right WISDOM TOOTH EXTRACTION 07/11/1970 - 07/10/1971 TONSILLECTOMY 07/11/1958 - 07/10/1959 BREAST LUMPECTOMY 01/06/2024 Left COLONOSCOPY last one 2023 MASTECTOMY, PARTIAL 01/27/2024 Left re-excision Medical History Medical History Date Comments Hypothyroidism Hypothyroidism Hx Other Medical Diabetes Type I I Hx Other Medical single kidney; Comments: LMG 09/10/2014 - Cataract PONV (postoperative nausea and vomiting) controlled with IV medication Hypertension Heart attack (HCC) Headache Diabetes (HCC) Arthritis Family History Medical History Relation Name Comments Breast cancer Daughter Heart disease Father Other Father ICD; Liver cancer Maternal Grandmother Breast cancer Mother's Sister Lung cancer Other 1 aunt Breast cancer Other 2 Breast cancer Paternal Grandmother Melanoma Sister Anesthesia problems Neg Hx Malig Hypertension Neg Hx Malig Hyperthermia Neg Hx Pseudochol deficiency Neg Hx Relation Name Status Comments Daughter Father Maternal Grandmother Mother's Sister Other 1 aunt Other 2 Alive Paternal Grandmother Sister Social History Tobacco Use Types Packs/Day Years [...] on file Legal Sex Female 4:22 PM FARM EQUIPMENT MECHANIC Gender Identity Not on file Sexual Orientation Not on file Obstetrics History Last Filed Vital Signs Vital Sign Reading Time Taken Comments Blood Pressure 130/74 07/26/2024 2:45 PM FARM EQUIPMENT MECHANIC Pulse 72 07/26/2024 2:45 PM FARM EQUIPMENT MECHANIC Temperature 36.8 C (98.3 F) 07/26/2024 2:45 PM FARM EQUIPMENT MECHANIC Respiratory Rate 18 07/26/2024 2:45 PM FARM EQUIPMENT MECHANIC Oxygen Saturation 96% 07/26/2024 2:45 PM FARM EQUIPMENT MECHANIC Inhaled Oxygen Concentration - - Weight 72.1 kg (159 lb) 07/26/2024 2:45 PM FARM EQUIPMENT MECHANIC Height 157.5 cm (5' 2 ) 07/26/2024 2:45 PM FARM EQUIPMENT MECHANIC Body Mass Index 29.08 07/26/2024 2:45 PM FARM EQUIPMENT MECHANIC Plan of Treatment Health Maintenance Due Date Last Done Comments Albumin Creatinine Ratio, Urine 1952 Colon Cancer Screening-Colonoscopy 1950 Depression Screening 1952 Hepatitis C Screening 1952 Osteoporosis Screening-Bone Density Scan 1952 Dilated Eye Exam 1952 Foot Exam 1952 DTaP/Tdap/Td Vaccine (1 - Tdap) 1963 Hepatitis B Screening 1970 Zoster Vaccine (1 of 2) 03/09/2016 01/13/2016, 07/11 Well Visit 65+ 2017 Hemoglobin A1C 12/21/2022 06/22/2022 eGFR 06/25/2023 06/25/2022, 06/22/2022 Covid-19 Vaccine ( - 2023-2 5 season) 2024 04/26/2023, 04/18/2022, 07/17/2021, Additional history exists Influenza Vaccine (#1) 2024 3, 04/18/2022, 03/28/2021, Additional history exists Lipid Panel 12/27/2024 12/28/2023, 03/12, 04/20/2021, Additional history exists Fall Risk Assessment 02/10/2025 02/11/2024 Breast Cancer Screening-Mammogram 07/26/2025 025 Pneumococcal vaccine 65+ Completed 04/26/2023 Medical Devices Implanted Type Area Daycare Teacher Device Identifier Shelf Expiration Date Model / Serial / Lot Cardiac Stent X4 Implanted:Qty: 3 Stent N/A: Heart Synthes 2.7mm 5mm 22mm 2.5mm Self Tap Stardrive Cortical T8 Screw Bone 202.882 - [id number] Implanted:Qty: 2 on 06/24/2022 by Sam Posadas MD at [facility] Synthes I 202.882 / / Synthes 2.7mm 5mm 24mm 2.5mm Self Tap Stardrive Cortical T8 Screw Bone 202.884 - [id number] Implanted:Qty: 1 on 06/24/2022 by Sam Posadas MD at [facility] Synthes I 202.884 / / Synthes Lcp Combi Philos Long [id number] 8 Hole Shaft Lock Compression 241.921 - [id number] Implanted:Qty: 1 on 06/24/2022 by Sam Posadas MD at [facility] Synthes I 241.921 / / Synthes Lc-Dcp 3.5mm 30mm Cortical Screw Bone Titanium Nonsterile Small 204.030 - [id number] Implanted:Qty: 1 on 06/24/2022 by Sam Posadas MD at [facility] Synthes I 204.030 / / Synthes 3.5mm 6mm 24mm 2.5mm Self Tap Small Hexagonal Socket Low Profile 204.824 - [id number] Implanted:Qty: 1 on 06/24/2022 by Sam Posadas MD at [facility] Synthes I 204.824 / / Synthes 3.5mm 2.9mm 22mm Self Tap Lock Stardrive Conical Head T15 Full 212.107 - [id number] Implanted:Qty: 2 on 06/24/2022 by Sam Posadas MD at [facility] Synthes I 212.107 / / Synthes 3.5mm 2.9mm 44mm Self Tap Lock Stardrive Conical Head T15 Full 212.134 - [id number] Implanted:Qty: 3 on 06/24/2022 by Sam Posadas MD at [facility] Synthes I 212.134 / / Synthes 3.5mm 2.9mm 46mm Self Tap Lock Stardrive Conical Head T15 Full 212.136 - [id number] Implanted:Qty: 1 on 06/24/2022 by Sam Posadas MD at [facility] Synthes I 212.136 / / [employer] Ultraclip Bard 17ga 10cm 2 Trigger Permanent Ultrasound [id number] - [id number] Implanted:Qty: 1 on 11/14/2023 at [facility] [employer] [id number] / / [employer] Ultraclip Bard 17ga 10cm 2 Trigger Permanent Ultrasound [id number] - [id number] Implanted:Qty: 1 on 11/14/2023 at [facility] [employer] [id number] / / [employer] [place] 20ga 7.5cm 2 Part Stabilizer Repositionable Depth Espinoza [id number] - [id number] Implanted:Qty: 2 on 01/06/2024 at [facility] [employer] [id number] 05/05/2028 [id number] / / [id number] Procedures Procedure Name Priority Date/Time Associated Diagnosis Comments SCREENING MAMMOGRAM RIGHT W TE UNILATERAL ONLY Schedule Routine, Read Routine (OP Routine) 07/26/2024 3:42 PM FARM EQUIPMENT MECHANIC 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 Encounter for screening mammogram for malignant neoplasm of breast POCT LIPID PANEL Routine 12/28/2023 1:17 PM CDT Lipid screening EGFR Routine 06/25/2022 6:31 AM FARM EQUIPMENT MECHANIC POCT HEMOGLOBIN A1C Routine 06/22/2022 4:16 PM FARM EQUIPMENT MECHANIC from Last 3 Months or Most Recently Relevant to Health Maintenance Results * Screening Mammogram Right W Te Unilateral Only (07/26/2024 3:42 PM FARM EQUIPMENT MECHANIC) Anatomical Region Laterality Modality Breast Right Mammography Narrative 07/27/2024 10:09 AM FARM EQUIPMENT MECHANIC Mammogram Technique: Right Breast Digital Breast Tomosynthesis, Unilateral C-view 2D Screening mammogram. Views obtained: right craniocaudal and right mediolateral oblique. Computer Aided Detection was performed. Mammogram Findings: The present examination has been compared to prior imaging studies performed at [facility] on 04/08/2022, 08/04/2023 and 09/05/2023. There are [...] compared to prior imaging studies performed at [facility] on 04/08/2022, 08/04/2023 and 09/05/2023. There are [...] Result * (ABNORMAL) eGFR (06/25/2022 6:31 AM FARM EQUIPMENT MECHANIC) eGFR 51(L) 90 - 130 mL/min/1. 73 m2 SHERYL SALMERON Comment: Interpretive Data Reference Interval Normal >/= [...] last reviewed 2021. Blood 06/25/2022 6:31 AM FARM EQUIPMENT MECHANIC 06/25/2022 6:41 AM FARM EQUIPMENT MECHANIC us Sam Posadas MD LAB BLOOD ORDERA BLES Final Result SHERYL SALMERON [facility] Department [place] [address] * (ABNORMAL) POCT hemoglobin A1c (06/22/2022 4:16 PM FARM EQUIPMENT MECHANIC) Hgb A1C, POC 6.6(H) 4.0 - 5.6 % SHERYL [facility] Est Average Gluc POC 143 mg/dL SHERYL [facility] Comment: The ADA recommends reporting an estimated Average Glucose (eAG) with all Hemoglobin A1c results using the equation derived from a study of 507 normal and diabetic adults. Minority populations were underrepresented and children were not included. (Diabetes Care 31:5356-5206, 2008). The eAG is not equivalent to a fasting glucose. Blood 06/22/2022 4:16 PM FARM EQUIPMENT MECHANIC 06/22/2022 4:16 PM FARM EQUIPMENT MECHANIC Sam Posadas MD POINT OF CARE TE ORDERABLES Final Result SHERYL [facility] Department [place] [address] from Last 3 Months or Most Recently Relevant to Health Maintenance Insurance MEDICARE [facility] Address: [facility] [address] [place] [address] COMMERCIAL GENERIC COMMERCIAL GENERIC MEDICARE MEDICARE [place] [address] [facility] SUPPLEMENT Advance Directives For more information, please contact: [phone] * Full Code (Latest Code Status on File) Date Activated Date Inactivated Comments 02/10/2024 2:08 PM 02/11/2024 10:07 PM * Full Code Date Activated Date Inactivated Comments 06/24/2022 6:44 PM 06/25/2022 7:30 PM Care Teams Residential Aide Relationship Specialty Start Date End Date Alton Myrick MD PCP - General Family Practice 04/07/20 Nyasia Jackson MD PhD [id number] [place] [address] Surgeon Surgical Oncology 01/06/24
--- OUTSIDE RECORDS SUMMARY | 2024-10-09 16:22 | XMS_ITS | Continuity of Care Document ---
Author Organization [facility] Address [address] [place] [address] [place] [address] Phone Care Team Providers Care Paint Grinder Name Role Phone Coreyprafulkranthi Reddy Unavailable Unavailable Procedures Procedure Date Eye Exam & Treatment Refraction Eye Exam & Treatment Refraction Advance Directives Directive Yes / No Effective Date File Name No Information Encounters Encounter Description Practice Location Reason(s) For Visit Diagnoses Date Provider Providers Copied on Encounter [facility], [address] [place] [address] [address], [place], [place], [id number], tel:[phone] [facility] No Information 0-201 0 Krishnasamy Reddy. [address], [facility], [place]. tel:[phone] [facility], [address] [place] [address] [address], [place], [place], [id number], tel:[phone] [facility] No Information 0-200 8 Krishnasamy Reddy. [address] [address], [place], [place], [facility], [place]. tel:[phone] Family History Family Member Type Diagnosis Age At Onset No Information Payers Payer name Insurance type Covered democrat ID Authoriza tion(s) No Information Social History Type Description Quantity Date Captured Comments Sex Female Smoking Status No Information Chief Complaint And Reason For Visit No Information Reason For Referral Reason For Referral No Information History Of Present Illness Encounter Date Complaint History Of Prese nt Illness No Information Functional Status Date Functional Assessmen t No Information Instructions Date Instruction Additional Infor mation No Information Assessments Type Assessment Date No Information Patient Care Teams Name Effective Dates (start - stop) Status Members No Information
--- OUTSIDE RECORDS SUMMARY | 2024-10-09 16:22 | XMS_ITS | Encounter Summary ---
Author Organization [facility] Address [address] [place] [address] Care Team Providers Care Security Alarm Technician Name Role Phone Sylvia Hein MD Primary Care Provider [phone] Reason for Visit * Diagnostic Imaging (Routine) - Pending Review Specialty Diagnoses / Procedures Referred By Contac t Referred To Contact Procedures Breast Imaging Screening Outside Reference Transcribed Order, Provider Referral ID Status Reason Start Date Expiration Date V isits Requested Visits Authorized [id number] Pending Review 10/20/2023 11/18/2024 1 1 Encounter Details Date Type Department Care Team (Late st Contact Info) Description 03/21/2017 Hospital Encounter [facility] Radiology [facility] [address] [place] [id number] Social History Tobacco Use Types Packs/Day Years [...] on file Legal Sex Female 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 There will be no report generated by a [facility] Radiologist. Narrative [facility] - 10/20/2023 9:38 AM CDT EXAMINATION: Images For Reference Purposes Only us Provider Transcribed Order IMG MAMMO PROCEDURES Final Result [facility] documented in this encounter Visit Diagnoses Not on filedocumented in this encounter Care Teams Security Alarm Technician Relationship Specialty Start Date End Date Sylvia Hein MD [address] [place] [address] [place] [address] PCP - General 10/08/16 09/20/17 documented as of this encounter
--- OUTSIDE RECORDS SUMMARY | 2024-10-09 16:22 | XMS_ITS | Clinical Summary ---
Author Organization [facility] Henok Reece Address [address] [place] [address] Care Team Providers Care Metal Finish Inspector Name Role Phone Unavailable Primary Care Provider Unavailabl e Allergies Active Allergy Reactions Criticality Noted Date Comments Codeine Anaphylaxis High 07/23/2024 Medications anastrozole (ARIMIDEX) 1 mg tablet Take 1 mg by mouth daily. 4 Active Janumet XR 50-1,000 mg Extended Release 24 hour tablet Take 1 Tablet by mouth daily. 5 Active glipiZIDE (GLUCOTROL) 10 mg tablet Take by mouth daily with breakfast. 4 Active carvediloL (COREG) 6.25 mg tablet Take 6.25 mg by mouth 2 times daily with meals. 4 Active lisinopriL (PRINIVIL) 20 mg tablet Take 20 mg by mouth daily. 4 Active BD Ultra-Fine Mini Pen Needle 31 gauge x 3/16 Needle use as directed 5 Active pantoprazole (PROTONIX) 40 mg Tablet, Delayed Release (E.C.) Take 40 mg by mouth daily at bedtime. 4 Active levothyroxine 100 mcg tablet Take 1 Tablet by mouth daily at bedtime. 5 Active Lantus Solostar U-100 Insulin 100 unit/mL (3 mL) solution for injection Inject 3 mL by subcutaneous injection one time only. 4 Active atorvastatin (LIPITOR) 20 mg tablet Take 20 mg by mouth daily with supper. 4 Active benzonatate (TESSALON) 100 mg capsule Take 100 mg by mouth 3 times daily as needed for Cough. 4 Active citalopram (CeleXA) 10 mg tablet Take 1 Tablet by mouth daily. 4 Active hydroCHLOROthia zide 12.5 mg tablet Take 1 Tablet by mouth daily. 4 Active aspirin (ECOTRIN EC) 81 mg Tablet, Delayed Release (E.C.) Take 81 mg by mouth daily at bedtime. Active L. acidophilus/L. rhamnosus (PROBIOTIC ORAL) Take by mouth. Activ e calcium-vitamin D3 (CALTRATE 600+D) 600 mg-5 mcg (200 unit) Tablet Take 1 Tablet by mouth daily. Active Cholecalciferol , Vitamin D3, 50 mcg (2,000 unit) Capsule Take 50 mcg by mouth daily. Active hydrOXYzine HCL (ATARAX) 25 mg tablet Take 25 mg by mouth 3 times daily as needed for Itching. Active azelastine-flut icasone 137-50 mcg/spray Denhoff, Non-Aerosol Administer 2 Sprays in each nostril 2 times daily. Active Active Problems No known active problems Encounters Date Type Department Care Team Description 10/09/2024 Orders Only [facility] Oncology and Hematology [facility] [address] [place] [address] August Jackman MD 09/26/2024 External Device Data STL ABSTRACTION Provider, Abstract 09/15/2024 External Device Data STL ABSTRACTION Provider, Abstract 09/15/2024 External Device Data STL ABSTRACTION Provider, Abstract 09/12/2024 External Device Data STL ABSTRACTION Provider, Abstract 08/29/2024 External Device Data STL ABSTRACTION Provider, Abstract 08/08/2024 11:00 AM MARKETING PRODUCTION COORDINATOR Office Visit [facility] Oncology and Hematology - [place] [address] [place] [address] August Jackman MD Chronic anemia (Primary Dx) 08/08/2024 External Device Data STL ABSTRACTION Provider, Abstract 08/02/2024 External Device Data STL ABSTRACTION Provider, Abstract 07/24/2024 External Device Data STL ABSTRACTION Provider, Abstract 07/24/2024 Orders Only [facility] Oncology and Hematology [place] [address] [place] [address] August Jackman MD 07/23/2024 3:00 PM MARKETING PRODUCTION COORDINATOR Office Visit [facility] Oncology and Hematology [place] [address] [place] [address] August Jackman MD Chronic anemia (Primary Dx) from Last 3 Months Family History Medical History Relation Name Comments No Known Problems Brother No Known Problems Child 1 Breast Cancer Child 2 Heart Disease Father No Known Problems Mother No Known Problems Sister 1 No Known Problems Sister 2 Relation Name Status Comments Brother Alive Child 1 Alive Child 2 Alive Father Mother Alive Sister 1 Alive Sister 2 Alive Social History Tobacco Use Types Packs/Day Years Used Date Smoking Tobacco: Never Smokeless Tobacco: Never Tobacco Cessation:Counseling Given: Not Answered Alcohol Use Standard Drinks/Week Comments Yes 0 (1 standard drink = 0.6 oz pur e alcohol) occasionaly Comments Unknown Sex and Gender Information Value Date Recorded Sex Assigned at Not on file Legal Sex Female 1:53 PM MARKETING PRODUCTION COORDINATOR Gender Identity Not on file Sexual Orientation Not on file Last Filed Vital Signs Vital Sign Reading Time Taken Comments Blood Pressure 125/76 08/08/2024 10:45 AM MARKETING PRODUCTION COORDINATOR Pulse 86 08/08/2024 10:45 AM MARKETING PRODUCTION COORDINATOR Temperature 36.8 C (98.3 F) 08/08/2024 10:45 AM MARKETING PRODUCTION COORDINATOR Respiratory Rate 15 08/08/2024 10:45 AM MARKETING PRODUCTION COORDINATOR Oxygen Saturation 94% 08/08/2024 10:45 AM MARKETING PRODUCTION COORDINATOR Inhaled Oxygen Concentration - - Weight 70.4 kg (155 lb 3.2 oz) 08/08/2024 10:45 AM MARKETING PRODUCTION COORDINATOR Height 160 cm (5' 3 ) 07/23/2024 3:07 PM MARKETING PRODUCTION COORDINATOR Body Mass Index 27.49 07/23/2024 3:07 PM MARKETING PRODUCTION COORDINATOR Plan of Treatment Upcoming Encounters Date Type Department Care Team (Late st Contact Info) Description 10/12/2024 12:45 PM CDT Office Visit [facility] Oncology and Hematology - [place] [address] [place] [address] August Jackman MD [address] [facility] [employer] [address] [place] [address] Health Maintenance Due Date Last Done Comments DIABETES ANNUAL FOOT EXAM 1970 DIABETES ANNUAL RETINAL EXAM 1970 DIABETES MICROALBUMIN ANNUAL SCREEN 1970 LDL CHOLESTEROL ANNUAL 1970 DTAP/TDAP/TD VACCINES (1 - Tdap) 1971 Traditional Medicare (ACO) A nnual Wellness Visit 1971 FIT-DNA Q 3 years 1997 FIT/FOBT Q 1 year 1997 Flex Sig/CT Colonography Q 5 years 1997 RSV VACCINE (60+ or ) (1 - Risk 60-74 years 1-dose series) 2012 ZOSTER VACCINE (2 of 3) 03/09/2016 01/13/2016, 07/11 OSTEOPOROSIS SCREENING 2017 DIABETES HBA1C Q 6 MONTHS 12/21/2022 06/22/2022 INFLUENZA VACCINE (#1) 2024 3, 04/18/2022, 03/28/2021, Additional history exists COVID-19 Vaccine (3 - 2023-2 5 season) 2024 09/25/2020, 09/02/2020 BREAST CANCER SCREENING 07/26/2025 07/26/2024, 07/26 COLORECTAL SCREENING 11/11/2027 11/10/2017 Colorectal Cancer Screening 11/11/2027 PNEUMOCOCCAL VACCINE 50+ YEARS Completed 04/26/2023 Procedures Procedure Name Priority Date/Time Associated Diagnosis Comments CBC MIXED CELL DIFFERENTIAL Routine 10/09/2024 3:59 PM CDT CBC WITH DIFFERENTIAL Routine 07/23/2024 2:36 PM MARKETING PRODUCTION COORDINATOR COMPREHENSIVE METABOLIC PANEL Routine 07/23/2024 1:19 PM MARKETING PRODUCTION COORDINATOR COMPREHENSIVE METABOLIC PANEL Routine 07/23/2024 12:10 PM MARKETING PRODUCTION COORDINATOR from Last 3 Months Results * CBC MIXED CELL DIFFERENTIAL (10/09/2024 3:59 PM CDT) Blood August Jackman MD HEMATOLOGY ORDERABLES Final Res ult * CBC WITH DIFFERENTIAL (07/23/2024 2:36 PM MARKETING PRODUCTION COORDINATOR) Blood August Jackman MD HEMATOLOGY ORDERABLES Final Res ult * COMPREHENSIVE METABOLIC PANEL (07/23/2024 1:19 PM MARKETING PRODUCTION COORDINATOR) Only the most recent of2 resultswithin the time period is included. Blood August Jackman MD CHEMISTRY ORDERABLES Final Resu lt from Last 3 Months Insurance MEDICARE PART A AND B GENERIC PAYOR
--- OUTSIDE RECORDS SUMMARY | 2024-10-09 16:22 | XMS_ITS | Encounter Summary ---
Author Organization [facility] [employer] [facility] Address [address] [place] [address] Care Team Providers Care Grain Elevator Operator Name Role Phone Unavailable Primary Care Provider Unavailabl e Encounter Details Date Type Department Care Team (Late Contact Info) Description 10/09/2024 Orders Only [facility] Oncology and Hematology [facility] [address] [place] [address] August Jackman MD [address] [place], [place] [address] [address] [place] [address] Social History Tobacco Use Types Packs/Day Years Used Date Smoking Tobacco: Never Smokeless Tobacco: Never Alcohol Use Standard Drinks/Week Comments Yes 0 (1 standard drink = 0.6 oz pur e alcohol) occasionaly Comments Unknown Sex and Gender Information Value Date Recorded Sex Assigned at Not on file Legal Sex Female 1:53 PM PRIVATE PILOT Gender Identity Not on file Sexual Orientation Not on file documented as of this encounter Plan of Treatment Upcoming Encounters Date Type Department Care Team (Late Contact Info) Description 10/12/2024 12:45 PM CDT Office Visit [facility] Oncology and Hematology - [place] [address] [place] [address] August Jackman MD [facility] [address] [place] [address] documented as of this encounter Procedures Procedure Name Priority Date/Time Associated Diagnosis Comments CBC MIXED CELL DIFFERENTIAL Routine 10/09/2024 3:59 PM CDT documented in this encounter Results * CBC MIXED CELL DIFFERENTIAL (10/09/2024 3:59 PM CDT) Blood August Jackman MD HEMATOLOGY ORDERABLES Final Res ult documented in this encounter Visit Diagnoses Not on filedocumented in this encounter
--- OUTSIDE RECORDS SUMMARY | 2024-10-09 16:22 | XMS_ITS | Clinical Summary ---
Author Organization [facility] Address [address], [facility] [address] [place] [address] Phone Care Team Providers Care Coordinator Volunteer Services Name Role Phone Alan Herrera MD Primary Care Provider [phone] Tiana Espinoza Jose DO Unavailable [phone] Allergies Active Allergy Reactions Criticality Noted Date Comments Codeine Unknown 11/14/2017 Medications polyethylene glycol (MIRALAX) Powder Mix the entire bottle with 64 oz of a clear liquid. Use as directed by the office for colonoscopy prep. 255 g 7 Active polyethylene glycol (MIRALAX) Powder Use entire bottle of 255 grams of miralax for Colon prep as directed by office. 255 g 8 Active atorvastatin (LIPITOR) 40 MG Tablet Take 40 mg by mouth daily. Active pantoprazole (PROTONIX) 40 MG Tablet Delayed Response Take 40 mg by mouth daily. Active carvedilol (COREG) 3.125 MG Tablet Take 3.125 mg by mouth 2 times daily. Active glipiZIDE (GLUCOTROL) 10 MG Tablet Take 10 mg by mouth daily. Active Levothyroxine Sodium 100 MCG Capsule Take by mouth. Activ e SITagliptin-met FORMIN (JANUMET) 50-1000 MG Tablet Take 1 Tab by mouth 2 times daily (with meals). Active aspirin EC 81 MG Tablet Delayed Response Take 81 mg by mouth daily. Active Calcium Carb-Cholecalci ferol (CALCIUM 600 + D PO) Take by mouth. Act beckie cyanocobalamin 1000 MCG Tablet Take 1,000 mcg by mouth daily. Active Immunizations Immunization Administration Dates Next Due Covid-19, Mrna, Lnp-s, Pf, 30 Mcg/0.3 Ml Dose (P fizer) 09/25/2020,09/02/2020 Family History Medical History Relation Name Comments Heart Disease Father Relation Name Status Comments Father Social History Tobacco Use Types Packs/Day Years Used Date Smoking Tobacco: Never Smokeless Tobacco: Never Alcohol Use Standard Drinks/Week Comments No 0 (1 standard drink = 0.6 oz pur e alcohol) Comments Unknown Sex and Gender Information Value Date Recorded Sex Assigned at Not on file Legal Sex Female 9:04 PM CDT Gender Identity Not on file Sexual Orientation Not on file Plan of Treatment Health Maintenance Due Date Last Done Comments DEXA Bone Density 1950 Hepatitis C Virus (HCV) Screening 1950 TdaP Immunization 1952 Cologuard 2002 Immunochemical Fecal Occult Blood 2002 Mammogram 2002 Pneumococcal Immunization (5 0+ years) (1 of 1 - PCV) 2002 Zoster Immunization (2 of 3) 03/09/201611/2015, 07/11/2014 Colonoscopy 11/10/2022 11/10/2017 Colorectal Cancer Screening 11/10/2022 Influenza Immunization (#1) 03/11/202403/12, 05/07/2019 SARS-COV-2 Immunization ( season) 2024 07/17/2021, 09/25/2020, 09/02/2020 Respiratory Syncytial Virus (RSV) Immunization (Adult) (1 - 1-dose 75+ series) 2027 11/10/2017 Hepatitis B Immunization Aged Out No longer eligible based on patient's age to complete this topic Meningococcal Immunization (ACWY) Aged Out No longer eligible b ased on patient's age to complete this topic Rotavirus Immunization Aged Out No lo nger eligible based on patient's age to complete this topic Procedures Procedure Name Priority Date/Time Associated Diagnosis Comments COLONOSCOPY Routine 11/10/2017 from Last 3 Months or Most Recently Relevant to Health Maintenance Results * COLONOSCOPY (11/10/2017) us Espinoza T Klyasmany DO PROCEDURE/MINOR SURGICAL ORDERA BLES Final Result from Last 3 Months or Most Recently Relevant to Health Maintenance Insurance MEDICARE [employer] GENERIC Care Teams Coordinator Volunteer Services Relationship Specialty Start Date End Date Alan Herrera MD [address] [place] [address] PCP - General Family Medicine 03/11/17 Espinoza Montiel DO [address] [place] [address] Consulting Physician Gastroenterology 11/10/17
--- OUTSIDE RECORDS SUMMARY | 2024-10-09 16:22 | XMS_ITS | Clinical Summary ---
Author Organization [facility] Address [address] [place] [address] Care Team Providers Care Cath Lab Technologist Name Role Phone None, Provider Primary Care Provider Unavaila ble Social History Tobacco Use Types Packs/Day Years Used Date Smoking Tobacco: Never Assessed Comments Unknown Sex and Gender Information Value Date Recorded Sex Assigned at Not on file Legal Sex Female 5:50 PM CDT Gender Identity Not on file Sexual Orientation Not on file Plan of Treatment Health Maintenance Due Date Last Done Comments Colorectal Cancer Screening Colonoscopy (10 Years) 1952 Hepatitis C 1970 DTaP, Tdap and Td Vaccines ( 1 - Tdap) 1971 Mammogram Screening 1992 Zoster Vaccines (1 of 2) 2002 Dexa Scan (General) 2017 Pneumococcal Vaccine: 65+ Ye ars (1 of 1 - PCV) 2017 COVID-19 Vaccine ( - 2023-2 5 season) 2024 Influenza Adult (#1) 2024 RSV Immunization or 60+ Years (1 - 1-dose 75+ series) 2027 Meningococcal B Vaccine Aged Out No l onger eligible based on patient's age to complete this topic Meningococcal Vaccine Aged Out No olu cuca eligible based on patient's age to complete this topic RSV Immunizations Under 20 Months Aged Out No longer eligible based on patient's age to complete this topic Care Teams Cath Lab Technologist Relationship Specialty Start Date End Date None, Provider, PCP - General 04/10/19
[2024-10-09 16:58] LABS: Alanine Aminotransferase 12 U/L (6-35); Albumin Level 4.4 g/dL (3.5-5.1); Alkaline Phosphatase 72 U/L (38-126); Anion Gap 12 mmol/L (4-12); Aspartate Amino Transferase 22 U/L (14-36); Bilirubin,Total 0.6 mg/dL (0.2-1.3); Blood Urea Nitrogen 21 mg/dL (7-17); Calcium 9.7 mg/dL (8.4-10.2); Carbon Dioxide 20 mmol/L (22-30); Chloride 103 mmol/L (98-107); Estimated Glomerular Filt Rate 43; Glucose 161 mg/dL (65-110); Potassium 4.6 mmol/L (3.4-5.0); Sodium 135 mmol/L (137-145)
[2024-10-09 17:23] LABS: Iron 91 ug/dL (37-170)
[2024-10-09 17:34] LABS: Percent Iron Saturation 31 % (20-50)
[2024-10-09 18:02] LABS: Folic Acid 9.6 ng/mL (2.76->20); Vitamin B12 > 1000.0 pg/mL (239-931)
== END 2024-10-09 14:53 | disposition home or self-care (01) ==
PROVIDERS: PCP Family Medicine; Visit Provider Internal Medicine Hematology & Oncology
DX: D64.9 Anemia, unspecified (principal)
CPT/HCPCS: 36415; 80053; 82607; 82728; 82746; 83540; 83550; 85025

== ENCOUNTER 2025-02-07 09:06 | Outpatient (CLI) | payer MEDICARE, OTHER, SELFPAY ==
--- OUTSIDE RECORDS SUMMARY | 2025-02-07 09:22 | XMS_ITS | Referral Summary ---
Author Organization [facility] [address] Address [address] [place] [address] Care Team Providers Care Home Restoration Service Cleaner Name Role Phone Alton Myrick MD Primary [...] Additional Information Patient not taking.Reported on 07/26/2024 anastrozole (ARIMIDEX) 1 mg tabletIndications :Ductal carcinoma [...] WITH MEALS 360 tablet 1 025 Active lisinopriL (PRINIVIL,ZESTRIL ) 20 mg tabletIndications :Essential hypertension TAKE 1 TABLET(20 MG) BY MOUTH DAILY 90 tablet [address] (PROTONIX) 40 mg EC tablet TAKE 1 TABLET(40 MG) BY MOUTH DAILY 90 tablet [address] (PROTONIX) 40 mg EC tablet TAKE 1 TABLET(40 MG) BY MOUTH DAILY 90 tablet 1 024 2024 Discontinued Active Problems Problem Noted Date [...] (06/22/2022): Added automatically from request for surgery [id number] Hyperlipidemia associated with type 2 diabetes m ellitus 04/20/2021 Abnormal carotid pulse 03/26/2019 Hypercholesteremia 03/21/2017 Coronary artery disease invo lving [place] coronary artery of [place] heart without angina pectoris 09/10/2014 Overview (10/15/2016): [...] on file Legal Sex Female 4:22 PM TRANSPLANT SURGEON Gender Identity Not on file Sexual Orientation Not on file Last Filed Vital Signs Vital Sign Reading Time Taken Comments Blood Pressure 130/74 07/26/2024 2:45 PM TRANSPLANT SURGEON Pulse 72 07/26/2024 2:45 PM TRANSPLANT SURGEON Temperature 36.8 C (98.3 F) 07/26/2024 2:45 PM TRANSPLANT SURGEON Respiratory Rate 18 07/26/2024 2:45 PM TRANSPLANT SURGEON Oxygen Saturation 96% 07/26/2024 2:45 PM TRANSPLANT SURGEON Inhaled Oxygen Concentration - - Weight 72.1 kg (159 lb) 07/26/2024 2:45 PM TRANSPLANT SURGEON Height 157.5 cm (5' 2) 07/26/2024 2:45 PM TRANSPLANT SURGEON Body Mass Index 29.08 07/26/2024 2:45 PM TRANSPLANT SURGEON Plan of Treatment Not on file Medical Devices Implanted Type Area Market Investigator Device Identifier Shelf Expiration Date Model / Serial / Lot Cardiac Stent X4 Implanted:Qty: 3 Stent N/A: Heart Synthes 2.7mm 5mm 22mm 2.5mm Self Tap Stardrive Cortical T8 Screw Bone 202.882 - [id number] Implanted:Qty: 2 on 06/24/2022 by Sam Posadas MD at [facility] Synthes I 202.882 / / Synthes 2.7mm 5mm 24mm 2.5mm Self Tap Stardrive Cortical T8 Screw Bone 202.884 - [id number] Implanted:Qty: 1 on 06/24/2022 by Sam Posadas MD at [facility] Synthes I 202.884 / / Synthes Lcp Combi Philos Long [id number] 8 Hole Shaft Lock Compression 241.921 - [id number] Implanted:Qty: 1 on 06/24/2022 by Sam Posadas MD at [facility] Synthes I 241.921 / / Synthes Lc-Dcp 3.5mm 30mm Cortical Screw Bone Titanium Nonsterile Small 204.030 - [id number] Implanted:Qty: 1 on 06/24/2022 by Sam Posadas MD at [facility] Synthes I 204.030 / / Synthes 3.5mm 6mm 24mm 2.5mm Self Tap Small Hexagonal Socket Low Profile 204.824 - [id number] Implanted:Qty: 1 on 06/24/2022 by Sam Posadas MD at [facility] Synthes I 204.824 / / Synthes 3.5mm 2.9mm 22mm Self Tap Lock Stardrive Conical Head T15 Full 212.107 - [id number] Implanted:Qty: 2 on 06/24/2022 by Sam Posadas MD at [facility] Synthes I 212.107 / / Synthes 3.5mm 2.9mm 44mm Self Tap Lock Stardrive Conical Head T15 Full 212.134 - [id number] Implanted:Qty: 3 on 06/24/2022 by Sam Posadas MD at [facility] Synthes I 212.134 / / Synthes 3.5mm 2.9mm 46mm Self Tap Lock Stardrive Conical Head T15 Full 212.136 - [id number] Implanted:Qty: 1 on 06/24/2022 by Sam Posadas MD at [facility] Synthes I 212.136 / / [employer] Ultraclip Bard 17ga 10cm 2 Trigger Permanent Ultrasound [id number] - [id number] Implanted:Qty: 1 on 11/14/2023 at [facility] [employer] [id number] / / [employer] Ultraclip Bard 17ga 10cm 2 Trigger Permanent Ultrasound [id number] - [id number] Implanted:Qty: 1 on 11/14/2023 at [facility] [employer] [id number] / / [employer] Corsica 20ga 7.5cm 2 Part Stabilizer Repositionable Depth Espinoza [id number] - [id number] Implanted:Qty: 2 on 01/06/2024 at [facility] [employer] [id number] 05/05/2028 [id number] / / [id number] Procedures Procedure Name Priority Date/Time Associated Diagnosis Comments SCREENING MAMMOGRAM RIGHT W FARHAN UNILATERAL ONLY Schedule Routine, Read Routine (OP Routine) 07/26/2024 3:42 PM TRANSPLANT SURGEON 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 Encounter for screening mammogram for malignant neoplasm of breast POCT LIPID PANEL Routine 12/28/2023 1:17 PM CDT Lipid screening EGFR Routine 06/25/2022 6:31 AM TRANSPLANT SURGEON POCT HEMOGLOBIN A1C Routine 06/22/2022 4:16 PM TRANSPLANT SURGEON from Last 3 Months or Most Recently Relevant to Health Maintenance Results * Screening Mammogram Right W Farhan Unilateral Only (07/26/2024 3:42 PM TRANSPLANT SURGEON) Anatomical Region Laterality Modality Breast Right Mammography Narrative 07/27/2024 10:09 AM TRANSPLANT SURGEON Mammogram Technique: Right Breast Digital Breast Tomosynthesis, Unilateral C-view 2D Screening mammogram. Views obtained: right craniocaudal and right mediolateral oblique. Computer Aided Detection was performed. Mammogram Findings: The present examination has been compared to prior imaging studies performed at [facility] on 04/08/2022, 08/04/2023 and 09/05/2023. There [...] compared to prior imaging studies performed at [facility] on 04/08/2022, 08/04/2023 and 09/05/2023. There [...] Result * (ABNORMAL) eGFR (06/25/2022 6:31 AM TRANSPLANT SURGEON) eGFR 51(L) 90 - 130 mL/min/1. 73 [...] last reviewed 2021. Blood 06/25/2022 6:31 AM TRANSPLANT SURGEON 06/25/2022 6:41 AM TRANSPLANT SURGEON Sam Posadas MD LAB BLOOD ORDERA BLES Final Result [facility] Department [place] [address] * (ABNORMAL) POCT hemoglobin A1c (06/22/2022 4:16 PM TRANSPLANT SURGEON) Hgb A1C, POC 6.6(H) 4.0 - 5.6 % [facility] Est Average Gluc POC 143 mg/dL [facility] Comment: The ADA recommends reporting an estimated Average Glucose (eAG) with all Hemoglobin A1c results using the equation derived from a study of 507 normal and diabetic adults. Minority populations were underrepresented and children were not included. (Diabetes Care 31:9608-4572, 2008). The eAG is not equivalent to a fasting glucose. Blood 06/22/2022 4:16 PM TRANSPLANT SURGEON 06/22/2022 4:16 PM TRANSPLANT SURGEON Sam Posadas MD POINT OF CARE [facility] ORDERABLES Final Result Performing Organization Address [facility]/State/[facility] Co de Phone Number [facility] Department [place] [address] from Last 3 Months or Most Recently Relevant to Health Maintenance Insurance MEDICARE COMMERCIAL GENERIC COMMERCIAL [facility] MEDICARE MEDICARE [place] [id number] [facility] SUPPLEMENT Advance Directives For more information, please contact: [phone] * Full Code (Latest Code Status on File) Date Activated Date Inactivated Comments 02/10/2024 2:08 PM 02/11/2024 10:07 PM * Full Code Date Activated Date Inactivated Comments 06/24/2022 6:44 PM 06/25/2022 7:30 PM Care Teams Home Restoration Service Cleaner Relationship Specialty Start Date End Date Alton Myrick MD PCP - General Family Practice 04/07/20 Nyasia Jackson MD PhD [id number] [place] [address] Surgeon Surgical Oncology 01/06/24
--- OUTSIDE RECORDS SUMMARY | 2025-02-07 09:22 | XMS_ITS | Clinical Summary ---
Author Organization [facility] Address [address], [facility] [address] [place] [address] Phone Care Team Providers Care Settlement Processor Name Role Phone Alan Herrera MD Primary Care Provider [phone] Espinoza Montiel DO Unavailable [phone] Allergies Active Allergy Reactions Criticality Noted Date [...] Health Maintenance Due Date Last Done Comments Hepatitis C Virus (HCV) Screening 1950 TdaP Immunization 1952 Cologuard 1997 Immunochemical Fecal Occult Blood 1997 Pneumococcal Immunization (5 0+ years) (1 of 1 - PCV) 2002 Zoster Immunization (2 of 3) 03/09/201611/2015, 07/11/2014 Colonoscopy 11/10/2022 11/10/2017 Colorectal Cancer Screening 11/10/2022 SARS-COV-2 Immunization ( season) 2024 07/17/2021, 09/25/2020, 09/02/2020 Influenza Immunization (#1) 2025 092 07/2019, 05/07/2019 Respiratory Syncytial Virus (RSV) Immunization (Adult) (1 - 1-dose 75+ series) 2027 Hepatitis B Immunization Aged Out No longer eligible based on patient's age to complete this topic Human Papillomavirus (HPV) Immunization Aged Out No longer eligible b ased [...] Recently Relevant to Health Maintenance Results * HM COLONOSCOPY (11/10/2017) us Espinoza T Tiana DO PROCEDURE/MINOR SURGICAL ORDERA BLES Final Result from Last 3 Months or Most Recently Relevant to Health Maintenance Insurance MEDICARE [employer] GENERIC Care Teams Settlement Processor Relationship Specialty Start Date End Date Alan Herrera MD [address] [place] [address] PCP - General Family Medicine 03/11/17 Espinoza Montiel DO [address] [place] [address] Consulting Physician Gastroenterology 11/10/17
--- OUTSIDE RECORDS SUMMARY | 2025-02-07 09:22 | XMS_ITS | Clinical Summary ---
Author Organization [facility] Henok Reece Address [address] [place] [address] Care Team Providers Care Embedded Software Developer Name Role Phone Alton Myrick MD Primary Care Provider Allergies Active Allergy Reactions Criticality Noted Date [...] for Itching. Active azelastine-flut icasone 137-50 mcg/spray [place], Non-Aerosol Administer 2 Sprays in each nostril 2 times daily. Active Active Problems No known active problems Encounters Date Type Department Care Team Description 01/23/2025 External Device Data STL ABSTRACTION Provider, Abstract 01/23/2025 External Device Data STL ABSTRACTION Provider, Abstract 12/25/2024 External Device Data STL ABSTRACTION Provider, Abstract 11/29/2024 External Device Data STL ABSTRACTION Provider, Abstract 11/28/2024 External Device Data STL ABSTRACTION Provider, Abstract 11/28/2024 External Device Data STL ABSTRACTION Provider, Abstract from Last 3 Months Family History Medical [...] on file Legal Sex Female 1:53 PM PLANT PHYSIOLOGY TEACHER Gender Identity Not on file Sexual Orientation Not on file Last Filed Vital Signs Vital Sign Reading Time Taken Comments Blood Pressure 122/69 10/12/2024 12:59 PM CDT Pulse 67 10/12/2024 12:59 PM CDT Temperature 36.3 C (97.3 F) 10/12/2024 12:59 PM CDT Respiratory Rate 15 10/12/2024 12:5 9 PM CDT Oxygen Saturation 95% 10/12/2024 12: 59 PM CDT Inhaled Oxygen Concentration - - Weight 69.8 kg (153 lb 12.8 oz) 025 12:59 PM CDT Height 160 cm (5' 3) 07/23/2024 3:07 PM PLANT PHYSIOLOGY TEACHER Body Mass Index 27.24 07/23/2024 3:07 PM PLANT PHYSIOLOGY TEACHER Plan of Treatment Upcoming Encounters Date Type Department Care Team (Late st Contact Info) Description 02/15/2025 12:00 PM CDT Office Visit [facility] Oncology and Hematology [facility] [address] [facility] [address] [place] [address] August Jackman MD [address] [facility] [address] [place] [address] Health Maintenance Due Date Last Done Comments DIABETES ANNUAL FOOT EXAM 1970 DIABETES MICROALBUMIN ANNUAL SCREEN 1970 LDL CHOLESTEROL ANNUAL 1970 DTAP/TDAP/TD VACCINES (1 - Tdap) 1971 Traditional Medicare (ACO) A nnual Wellness Visit 1971 FIT-DNA Q 3 years 1997 FIT/FOBT Q 1 year 1997 Flex Sig/CT Colonography Q 5 years 1997 RSV VACCINE (60+ or ) (1 - Risk 60-74 years 1-dose series) 2012 ZOSTER VACCINE (2 of 3) 03/09/2016 01/13/2016, 07/11 COVID-19 Vaccine (3 - 2023-2 5 season) 2024 09/25/2020, 09/02/2020 DIABETES HBA1C Q 6 MONTHS 11/26/20242023, 09/12/2023, 02/28/2023, Additional history exists INFLUENZA VACCINE (#1) 2025 3, 04/18/2022, 03/28/2021, Additional history exists DIABETES ANNUAL RETINAL EXAM 03/22/202506/2024, 02/29/2024, 02/29/2024, Additional history exists BREAST CANCER SCREENING 07/26/2025 07/26/19, 07/26/2024, 07/26/2024, Additional history exists OSTEOPOROSIS SCREENING 09/05/2028 09/05/2023, 2020 COLORECTAL SCREENING 05/09/2033 05/09/2023, 11/11/19 Colorectal Cancer Screening 05/09/2033 PNEUMOCOCCAL VACCINE 50+ YEARS Completed 04/26/2023 Insurance MEDICARE PART A AND B GENERIC PAYOR Care Teams Embedded Software Developer Relationship Specialty Start Date End Date Alton Myrick MD [facility] [place] [address] PCP - General Family Practice 10/12/24
--- OUTSIDE RECORDS SUMMARY | 2025-02-07 09:22 | XMS_ITS | Encounter Summary ---
Author Organization [facility] Healthcare Address [address] [place] [address] Care Team Providers Care Thread Dresser Name Role Phone Sylvia Hein MD Primary Care Provider [phone] Reason for Visit * Diagnostic Imaging (Routine) - Closed Specialty Diagnoses / Procedures Referred By Abisai balderrama Referred To Contact Procedures Breast Imaging Screening Outside Reference Transcribed Order, Provider Referral ID Status Reason Start Date Expiration Date Visits Re quested Visits Authorized [id number] Closed 10/20/2023 11/18/2024 1 1 Encounter Details Date Type Department Care Team (Late st Contact Info) Description 03/21/2017 Hospital Encounter [facility] [address] [place] [id number] Social History Tobacco Use Types Packs/Day Years [...] on file Legal Sex Female 4:22 PM HOISTING ENGINEER PILE DRIVING Gender Identity Not on file Sexual Orientation [...] only and have not been reviewed by [facility] Radiology. There will be no report generated by a [facility] Radiologist. Narrative [facility]MO[facility] - 10/20/2023 9:38 AM CDT EXAMINATION: Images For Reference Purposes Only us Provider Transcribed Order IMG MAMMO PROCEDURES Final Result [facility] documented in this encounter Visit Diagnoses Not on filedocumented in this encounter Care Teams Thread Dresser Relationship Specialty Start Date End Date Sylvia Hein MD [address] [place] [address] [address] [place] [id number] PCP - General 10/08/16 09/20/17 documented as of this encounter
--- OUTSIDE RECORDS SUMMARY | 2025-02-07 09:22 | XMS_ITS | Continuity of Care Document ---
Author Organization [facility] Address [address] [place] [address] [place] [address] Phone Care Team Providers Care Audio/Video Technician Name Role Phone Coreyprafulkranthi Reddy Unavailable Unavailable Procedures Procedure Date Eye Exam & Treatment Refraction Eye Exam & Treatment Refraction Advance Directives Directive Yes / No Effective Date File Name No Information Encounters Encounter Description Practice Location Reason(s) For Visit Diagnoses Date Provider Providers Copied on Encounter [facility], [address] [place] [address] [address], [place], [place], [id number], tel:[phone] [facility] No Information 0-201 0 Krishnasamy Reddy. [address], [facility] [place], [place]. tel:[phone] [facility], [address] [place] [address] [address], [place], [place], [id number], tel:[phone] [facility] No Information 0-200 8 Krishnasamy Reddy. [address] [place] [address], [place], [place], [facility], [place]. tel:[phone] Family History Family Member Type Diagnosis Age At Onset No Information Payers Payer name Insurance type Covered green party ID Authoriza tion(s) No Information Social History [...]
--- OUTSIDE RECORDS SUMMARY | 2025-02-07 09:22 | XMS_ITS ---
Author Organization [facility] [address] Address [address] [place] [address] Care Team Providers Care Ecologist Name Role Phone Alton Myrick MD Primary [...] (06/22/2022): Added automatically from request for surgery [id number] Hyperlipidemia associated with type 2 diabetes m kumaritus 04/20/2021 Abnormal carotid pulse 03/26/2019 Hypercholesteremia 03/21/2017 Coronary artery disease invo lving venetie ira coronary artery of venetie ira heart without angina pectoris 09/10/2014 Overview (10/15/2016): [...]
--- OUTSIDE RECORDS SUMMARY | 2025-02-07 09:22 | XMS_ITS | Encounter Summary ---
Author Organization [facility] Healthcare Address [address] [place] [address] Care Team Providers Care Casino Dealer Name Role Phone Alan Herrera MD Primary Care Provider [phone] Reason for Visit * Diagnostic Imaging (Routine) - Closed Specialty Diagnoses / Procedures Referred By Contac conchis Referred To Contact Procedures Breast Imaging Screening Outside Reference Transcribed Order, Provider Referral ID Status Reason Start Date Expiration Date Visits Re quested Visits Authorized [id number] Closed 10/20/2023 11/18/2024 1 1 Encounter Details Date Type Department Care Team (Late st Contact Info) Description 08/24/2019 Hospital Encounter [facility] [address] [place] [id number] Social History Tobacco Use Types Packs/Day Years [...] on file Legal Sex Female 4:22 PM WORD PROCESSING SPECIALIST Gender Identity Not on file Sexual Orientation [...] SCREENING OUTSIDE REFERENCE Routine 08/24/2019 12:00 AM WORD PROCESSING SPECIALIST documented in this encounter Results * Breast Imaging Screening Outside Reference (08/24/2019 12:00 AM WORD PROCESSING SPECIALIST) Impressions [facility]MO[facility] - 10/20/2023 9:38 AM CDT These images are for Reference purposes only and have not been reviewed by [facility] Radiology. There will be no report generated by a [facility] Radiologist. Narrative [facility]MAMMO[facility] - 10/20/2023 9:38 AM CDT EXAMINATION: Images For Reference Purposes Only us Provider Transcribed Order IMG MAMMO PROCEDURES Final Result [facility] documented in this encounter Visit Diagnoses Not on filedocumented in this encounter Care Teams Casino Dealer Relationship Specialty Start Date End Date Alan Herrera MD [address] [place] [address] PCP - General 09/21/17 04/06/20 documented as of this encounter
--- OUTSIDE RECORDS SUMMARY | 2025-02-07 09:22 | XMS_ITS | Clinical Summary ---
Author Organization [facility] [address] Address [address] [place] [address] Care Team Providers Care Semi Truck Driver Name Role Phone Alton Myrick MD Primary [...] (06/22/2022): Added automatically from request for surgery [id number] Hyperlipidemia associated with type 2 diabetes m ellitus 04/20/2021 Abnormal carotid pulse 03/26/2019 Hypercholesteremia 03/21/2017 Coronary artery disease invo lving kiana coronary artery of kiana heart without angina pectoris 09/10/2014 Overview (10/15/2016): [...] on file Legal Sex Female 4:22 PM RESEARCH CONTRACTS SUPERVISOR Gender Identity Not on file Sexual Orientation Not on file Obstetrics History Last Filed Vital Signs Vital Sign Reading Time Taken Comments Blood Pressure 130/74 07/26/2024 2:45 PM RESEARCH CONTRACTS SUPERVISOR Pulse 72 07/26/2024 2:45 PM RESEARCH CONTRACTS SUPERVISOR Temperature 36.8 C (98.3 F) 07/26/2024 2:45 PM RESEARCH CONTRACTS SUPERVISOR Respiratory Rate 18 07/26/2024 2:45 PM RESEARCH CONTRACTS SUPERVISOR Oxygen Saturation 96% 07/26/2024 2:45 PM RESEARCH CONTRACTS SUPERVISOR Inhaled Oxygen Concentration - - Weight 72.1 kg (159 lb) 07/26/2024 2:45 PM RESEARCH CONTRACTS SUPERVISOR Height 157.5 cm (5' 2) 07/26/2024 2:45 PM RESEARCH CONTRACTS SUPERVISOR Body Mass Index 29.08 07/26/2024 2:45 PM RESEARCH CONTRACTS SUPERVISOR Plan of Treatment Health Maintenance Due Date [...] 2024 04/26/2023, 04/18/2022, 07/17/2021, Additional history exists Lipid Panel 12/27/2024 12/28/2023, 03/12, 04/20/2021, Additional history exists Fall Risk Assessment 02/10/2025 02/11/2024 Influenza Vaccine (#1) 2025 3, 04/18/2022, 03/28/2021, Additional history exists Breast Cancer Screening-Mammogram 07/26/2025 025 Pneumococcal vaccine 65+ Completed 04/26/2023 Medical Devices Implanted Type Area Lace Cutter Device Identifier Shelf Expiration Date Model / Serial / Lot Cardiac Stent X4 Implanted:Qty: 3 Stent N/A: Heart Synthes 2.7mm 5mm 22mm 2.5mm Self Tap Stardrive Cortical T8 Screw Bone 202.882 - [id number] Implanted:Qty: 2 on 06/24/2022 by Sam Posadas MD at [facility] Synthes I 202.882 / / Synthes 2.7mm 5mm 24mm 2.5mm Self Tap Stardrive Cortical T8 Screw Bone 202.884 - [id number] Implanted:Qty: 1 on 06/24/2022 by Sam Posadas MD at [facility] Synthes I 202.884 / / Synthes Lcp Combi Philos Long 650i39h1.7mm 8 Hole Shaft Lock Compression 241.921 - [id number] Implanted:Qty: 1 on 06/24/2022 by Sam Posadas MD at [facility] Synthes I 241.921 / / Synthes Lc-Dcp 3.5mm 30mm Cortical Screw Bone Titanium Nonsterile Small 204.030 - [id number] Implanted:Qty: 1 on 06/24/2022 by Sam Posadas MD at [facility] Synthes I 204.030 / / Synthes 3.5mm 6mm 24mm 2.5mm Self Tap Small Hexagonal Socket Low Profile 204.824 - [id number] Implanted:Qty: 1 on 06/24/2022 by Sam Posadas MD at [facility] Synthes I 204.824 / / Synthes 3.5mm 2.9mm 22mm Self Tap Lock Stardrive Conical Head T15 Full 212.107 - [id number] Implanted:Qty: 2 on 06/24/2022 by Sam Posadas MD at [facility] Synthes I 212.107 / / Synthes 3.5mm 2.9mm 44mm Self Tap Lock Stardrive Conical Head T15 Full 212.134 - [id number] Implanted:Qty: 3 on 06/24/2022 by Sam Posadas MD at [facility] Synthes I 212.134 / / Synthes 3.5mm 2.9mm 46mm Self Tap Lock Stardrive Conical Head T15 Full 212.136 - [id number] Implanted:Qty: 1 on 06/24/2022 by Sam Posadas MD at [facility] Synthes I 212.136 / / Bard [employer] Ultraclip Bard 17ga 10cm 2 Trigger Permanent Ultrasound [id number] - [id number] Implanted:Qty: 1 on 11/14/2023 at [facility] [employer] [id number] / / [employer] Ultraclip Bard 17ga 10cm 2 Trigger Permanent Ultrasound 457343m - [id number] Implanted:Qty: 1 on 11/14/2023 at [facility] [employer] [id number] / / [employer] [place] 20ga 7.5cm 2 Part Stabilizer Repositionable Depth Espinoza [id number] - [id number] Implanted:Qty: 2 on 01/06/2024 at [facility] [employer] [id number] 05/05/2028 [id number] / / [id number] Procedures Procedure Name Priority Date/Time Associated Diagnosis Comments SCREENING MAMMOGRAM RIGHT W FARHAN UNILATERAL ONLY Schedule Routine, Read Routine (OP Routine) 07/26/2024 3:42 PM RESEARCH CONTRACTS SUPERVISOR 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 Encounter for screening mammogram for malignant neoplasm of breast POCT LIPID PANEL Routine 12/28/2023 1:17 PM CDT Lipid screening EGFR Routine 06/25/2022 6:31 AM RESEARCH CONTRACTS SUPERVISOR POCT HEMOGLOBIN A1C Routine 06/22/2022 4:16 PM RESEARCH CONTRACTS SUPERVISOR from Last 3 Months or Most Recently Relevant to Health Maintenance Results * Screening Mammogram Right W Farhan Unilateral Only (07/26/2024 3:42 PM RESEARCH CONTRACTS SUPERVISOR) Anatomical Region Laterality Modality Breast Right Mammography Narrative 07/27/2024 10:09 AM RESEARCH CONTRACTS SUPERVISOR Mammogram Technique: Right Breast Digital Breast Tomosynthesis, Unilateral C-view 2D Screening mammogram. Views obtained: right craniocaudal and right mediolateral oblique. Computer Aided Detection was performed. Mammogram Findings: The present examination has been compared to prior imaging studies performed at [facility]. [facility] on 04/08/2022, 08/04/2023 and 09/05/2023. There [...] compared to prior imaging studies performed at [facility] on 04/08/2022, 08/04/2023 and 09/05/2023. There are scattered areas of fibroglandular density. There is no suspicious abnormality in the right breast. Patient status post contralateral mastectomy for personal history ofbreast cancer. Impression: There is no mammographic evidence of malignancy. Annual screening mammography is recommended. OVERALL FINAL ASSESSMENT: BI-RADS CATEGORY 1: Negative. us Nyasia Jackson MD PhD IMG MAMMO PROCEDURES [...] Result * (ABNORMAL) eGFR (06/25/2022 6:31 AM RESEARCH CONTRACTS SUPERVISOR) eGFR 51(L) 90 - 130 mL/min/1. 73 [...] last reviewed 2021. Blood 06/25/2022 6:31 AM RESEARCH CONTRACTS SUPERVISOR 06/25/2022 6:41 AM RESEARCH CONTRACTS SUPERVISOR Sam Posadas MD LAB BLOOD ORDERA BLES Final Result Performing Organization Address City/[facility] Co de Phone Number SHERYL [facility] Department [place] [address] * (ABNORMAL) POCT hemoglobin A1c (06/22/2022 4:16 PM RESEARCH CONTRACTS SUPERVISOR) Hgb A1C, POC 6.6(H) 4.0 - 5.6 % [facility] Est Average Gluc POC 143 mg/dL [facility] Comment: The ADA recommends reporting an estimated Average Glucose (eAG) with all Hemoglobin A1c results using the equation derived from a study of 507 normal and diabetic adults. Minority populations were underrepresented and children were not included. (Diabetes Care 31:6636-4465, 2008). The eAG is not equivalent to a fasting glucose. Blood 06/22/2022 4:16 PM RESEARCH CONTRACTS SUPERVISOR 06/22/2022 4:16 PM RESEARCH CONTRACTS SUPERVISOR Sam Posadas MD POINT OF CARE TE ST ORDERABLES Final Result Performing Organization Address [facility] Co de Phone Number [facility] [place] [address] from Last 3 Months or Most Recently Relevant to Health Maintenance Insurance MEDICARE COMMERCIAL GENERIC COMMERCIAL GENERIC MEDICARE MEDICARE [place] [address] [employer] SUPPLEMENT Advance Directives For more information, please contact: [phone] * Full Code (Latest Code Status on File) Date Activated Date Inactivated Comments 02/10/2024 2:08 PM 02/11/2024 10:07 PM * Full Code Date Activated Date Inactivated Comments 06/24/2022 6:44 PM 06/25/2022 7:30 PM Care Teams Semi Truck Driver Relationship Specialty Start Date End Date Alton Myrick MD PCP - General Family Practice 04/07/20 Nyasia Jackson MD PhD [address] [phone] [place] [address] Surgeon Surgical Oncology 01/06/24
[2025-02-07 09:28] LABS: Hematocrit 37.4 % (37.0-47.0); Hemoglobin 12.7 g/dL (12.0-15.0); Mean Corpuscular HGB Conc 34.0 g/dl (32-36); Mean Corpuscular Hemoglobin 30.0 pg (26-34); Mean Corpuscular Volume 88.4 fl (80-100); Platelet Count Result 200 k/mm3 (150-375); Red Blood Count 4.23 M/mm3 (4.2-5.4); White Blood Count 5.9 K/mm3 (4.5-10.0)
[2025-02-07 12:06] LABS: Anion Gap 6 mmol/L (4-12); Blood Urea Nitrogen 28 mg/dL (7-17); Calcium 9.7 mg/dL (8.4-10.2); Carbon Dioxide 25 mmol/L (22-30); Chloride 101 mmol/L (98-107); Estimated Glomerular Filt Rate 37; Glucose 255 mg/dL (65-110); Iron 97 ug/dL (37-170); Potassium 4.6 mmol/L (3.4-5.0); Sodium 132 mmol/L (137-145)
[2025-02-07 12:14] LABS: MALB Creatinine Ratio 14.5 mg/g (0-30)
[2025-02-07 12:19] LABS: Percent Iron Saturation 32 % (20-50)
[2025-02-07 12:23] LABS: Free T4 Free Thyroxine 1.70 ng/dL (0.78-2.19)
[2025-02-07 12:36] LABS: Thyroid Stimulating Hormone 0.560 uIU/mL (0.465-4.680)
[2025-02-07 12:40] LABS: Hemoglobin A1C 8.2 % (<5.7)
[2025-02-07 12:52] LABS: Ferritin 44.90 ng/mL (11.1-264)
[2025-02-07 13:20] LABS: Vitamin B12 > 1000.0 pg/mL (239-931)
== END 2025-02-07 09:07 | disposition home or self-care (01) ==
PROVIDERS: PCP Family Medicine; Referring Provider Nurse Practitioner Family; Visit Provider Internal Medicine Hematology & Oncology
DX: D64.9 Anemia, unspecified (principal); E11.9 Type 2 diabetes mellitus without complications; E03.9 Hypothyroidism, unspecified; E55.9 Vitamin D deficiency, unspecified
CPT/HCPCS: 36415; 80048; 82043; 82306; 82607; 82728; 82746; 83036; 83540; 83550; 84439; 84443; 85027

== ENCOUNTER 2025-03-01 10:57 | Outpatient (CLI) | payer MEDICARE, OTHER, SELFPAY ==
--- OUTSIDE RECORDS SUMMARY | 2017-03-21 | XMS_ITS | Encounter Summary ---
Author Organization [facility] Healthcare Address [address] [place] [address] Care Team Providers Care Topstitcher Lockstitch Name Role Phone Sylvia Hein MD Primary Care Provider [phone]- [phone] Reason for Visit * Diagnostic Imaging (Routine) - Closed Specialty Diagnoses / Procedures Referred By Abisai balderrama Referred To Contact Procedures Breast Imaging Screening Outside Reference Transcribed Order, Provider Referral ID Status Reason Start Date Expiration Date Visits Re quested Visits Authorized [id number] Closed 10/20/2023 11/18/2024 1 1 Encounter Details Date Type Department Care Team (Late st Contact Info) Description 03/21/2017 Hospital Encounter [facility] [address] [place] [id number] Social History Tobacco Use Types Packs/Day Years Used Date Smoking Tobacco: Never Passive Smoke Exposure: Past Smokeless Tobacco: Never Alcohol Use Standard Drinks/Week Comments Yes 0 (1 standard drink = 0.6 oz pur e alcohol) AUDIT-C Answer Date Recorded Q1: How often do you have a drink containing alcohol? Never 02/10/2024 Q2: How many drinks containi ng alcohol do you have on a typical day when you are drinking? Patient does not drink Q3: How often do you have si x or more drinks on one occasion? Never 02/10/2024 Personal Safety Answer Date Recorded Have you ever been in or are you currently in a harmful physical or emotional relationship or is someone making you feel afraid or unsafe? 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 Never 02/10/2024 8:08 AM Francisca Spears RN Q2: How many drinks containing alcohol do you have on a typical day when you are drinking? Patient does not drink 02/10/2024 8:08 AM Francisca Spears RN Q3: How often do you have six or more drinks on one occasion? Never 02/10/2024 8:08 AM Francisca Spears RN documented as of this encounter Plan of Treatment Not on file documented as of this encounter Procedures Procedure Name Priority Date/Time Associated Diagnosis Comments BREAST IMAGING MG SCREENING OUTSIDE REFERENCE Routine 03/21/2017 12:00 AM CDT documented in this encounter Results * Breast Imaging Screening Outside Reference (03/21/2017 12:00 AM CDT) Impressions [facility] - 10/20/2023 9:38 AM CDT These images are for Reference purposes only and have not been reviewed by [facility] Radiology. There will be no report generated by a [facility] Radiologist. Narrative [facility] - 10/20/2023 9:38 AM CDT EXAMINATION: Images For Reference Purposes Only us Provider Transcribed Order IMG MAMMO PROCEDURES Final Result [facility] documented in this encounter Visit Diagnoses Not on filedocumented in this encounter Care Teams Topstitcher Lockstitch Relationship Specialty Start Date End Date Sylvia Hein MD [address] [place] [address] [address] [place] [id number] PCP - General 10/08/16 09/20/17 documented as of this encounter
--- OUTSIDE RECORDS SUMMARY | 2019-08-24 01:00 | XMS_ITS | Encounter Summary ---
Author Organization [facility] Healthcare Address [address] [place] [address] Care Team Providers Care Chocolate Maker Name Role Phone Alan Herrera MD Primary Care Provider [phone]- [phone] Reason for Visit * Diagnostic Imaging (Routine) - Closed Specialty Diagnoses / Procedures Referred By Contac conchis Referred To Contact Procedures Breast Imaging Screening Outside Reference Transcribed Order, Provider Referral ID Status Reason Start Date Expiration Date Visits Re quested Visits Authorized [id number] Closed 10/20/2023 11/18/2024 1 1 Encounter Details Date Type Department Care Team (Late st Contact Info) Description 08/24/2019 Hospital Encounter [facility] Radiology [facility] [address] [place] [id number] Social History Tobacco Use Types Packs/Day Years [...] on file 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 There will be no report generated by a [facility] Radiologist. Narrative [facility] - 10/20/2023 9:38 AM CDT EXAMINATION: Images For Reference Purposes Only us Provider Transcribed Order IMG MAMMO PROCEDURES Final Result [facility] documented in this encounter Visit Diagnoses Not on filedocumented in this encounter Care Teams Chocolate Maker Relationship Specialty Start Date End Date Alan Herrera MD [address] [place] [address] PCP - General 09/21/17 04/06/20 documented as of this encounter
--- OUTSIDE RECORDS SUMMARY | 2025-03-01 11:01 | XMS_ITS | Clinical Summary ---
Author Organization [facility] [place] [address] Address [address] [place] [address] Care Team Providers Care Warehouse Checker Name Role Phone Alton Myrick MD Primary [...] daily 30 tablet 11 025 2025 Active carvediloL (COREG) 6.25 mg tablet TAKE 2 TABLETS(12.5 MG) BY MOUTH TWICE DAILY WITH MEALS 360 tablet 1 025 Active lisinopriL (PRINIVIL,ZESTRIL ) 20 mg tabletIndications :Essential hypertension TAKE 1 TABLET(20 MG) BY MOUTH DAILY 90 tablet [address] (PROTONIX) 40 mg EC tablet TAKE 1 TABLET(40 MG) BY MOUTH DAILY 90 tablet 1 025 Active atorvastatin (LIPITOR) 20 mg tablet TAKE 1 TABLET(20 MG) BY MOUTH EVERY NIGHT 90 tablet 1 025 Active atorvastatin (LIPITOR) 20 mg tabletIndications :hyperlipidemia Take 1 tablet (20 mg total) by mouth nightly 90 tablet 1 025 2024 Discontinued Active Problems Problem Noted [...] (06/22/2022): Added automatically from request for surgery [id number] Hyperlipidemia associated with type 2 diabetes m ellitus 04/20/2021 Abnormal carotid pulse 03/26/2019 Hypercholesteremia 03/21/2017 Coronary artery disease invo lving [place] coronary artery of [place] heart without angina pectoris 09/10/2014 Overview (10/15/2016): [...] on file Legal Sex Female 4:22 PM HUMAN RESOURCES TECHNICIAN Gender Identity Not on file Sexual Orientation Not on file Obstetrics History Last Filed Vital Signs Vital Sign Reading Time Taken Comments Blood Pressure 130/74 07/26/2024 2:45 PM HUMAN RESOURCES TECHNICIAN Pulse 72 07/26/2024 2:45 PM HUMAN RESOURCES TECHNICIAN Temperature 36.8 C (98.3 F) 07/26/2024 2:45 PM HUMAN RESOURCES TECHNICIAN Respiratory Rate 18 07/26/2024 2:45 PM HUMAN RESOURCES TECHNICIAN Oxygen Saturation 96% 07/26/2024 2:45 PM HUMAN RESOURCES TECHNICIAN Inhaled Oxygen Concentration - - Weight 72.1 kg (159 lb) 07/26/2024 2:45 PM HUMAN RESOURCES TECHNICIAN Height 157.5 cm (5' 2) 07/26/2024 2:45 PM HUMAN RESOURCES TECHNICIAN Body Mass Index 29.08 07/26/2024 2:45 PM HUMAN RESOURCES TECHNICIAN Plan of Treatment Health Maintenance Due Date [...] 06/22/2022 eGFR 06/25/2023 06/25/2022, 06/22/2022 Covid-19 Vaccine (2023-2 5 season) 2024 04/26/2023, 04/18/2022, 07/17/2021, Additional history exists Lipid Panel 12/27/2024 12/28/2023, 03/12, 04/20/2021, Additional history exists Fall Risk Assessment 02/10/2025 02/11/2024 Influenza Vaccine (#1) 2025 3, 04/18/2022, 03/28/2021, Additional history exists Breast Cancer Screening-Mammogram 07/26/2025 025 Pneumococcal vaccine 65+ Completed 04/26/2023 Medical Devices Implanted Type Area Revenue Officer Device Identifier Shelf Expiration Date Model / Serial / Lot Cardiac Stent X4 Implanted:Qty: 3 Stent N/A: Heart Synthes 2.7mm 5mm 22mm 2.5mm Self Tap Stardrive Cortical T8 Screw Bone 202.882 - [id number] Implanted:Qty: 2 on 06/24/2022 by Sam Posadas MD at [facility] Synthes I 202.882 / / Synthes 2.7mm 5mm 24mm 2.5mm Self Tap Stardrive Cortical T8 Screw Bone 202.884 - [id number] Implanted:Qty: 1 on 06/24/2022 by Sam Posadas MD at [facility] Synthes I 202.884 / / Synthes Lcp Combi Philos Long [id number] 8 Hole Shaft Lock Compression 241.921 - [id number] Implanted:Qty: 1 on 06/24/2022 by Sam Posadas MD at [facility] Synthes I 241.921 / / Synthes Lc-Dcp 3.5mm 30mm Cortical Screw Bone Titanium Nonsterile Small 204.030 - [id number] Implanted:Qty: 1 on 06/24/2022 by Sam Posadas MD at [facility] Synthes I 204.030 / / Synthes 3.5mm 6mm 24mm 2.5mm Self Tap Small Hexagonal Socket Low Profile 204.824 - [id number] Implanted:Qty: 1 on 06/24/2022 by Sam Posadas MD at [facility] Synthes I 204.824 / / Synthes 3.5mm 2.9mm 22mm Self Tap Lock Stardrive Conical Head T15 Full 212.107 - [id number] Implanted:Qty: 2 on 06/24/2022 by Sam Posadas MD at [facility] Synthes I 212.107 / / Synthes 3.5mm 2.9mm 44mm Self Tap Lock Stardrive Conical Head T15 Full 212.134 - [id number] Implanted:Qty: 3 on 06/24/2022 by Sam Posadas MD at [facility] Synthes I 212.134 / / Synthes 3.5mm 2.9mm 46mm Self Tap Lock Stardrive Conical Head T15 Full 212.136 - [id number] Implanted:Qty: 1 on 06/24/2022 by Sam Posadas MD at [facility] Synthes I 212.136 / / Bard [employer] Ultraclip Bard 17ga 10cm 2 Trigger Permanent Ultrasound [id number] - [id number] Implanted:Qty: 1 on 11/14/2023 at [facility] [employer] [id number] / / Bard Peripheral V[employer] Ultraclip Bard 17ga 10cm 2 Trigger Permanent Ultrasound [id number] - [id number] Implanted:Qty: 1 on 11/14/2023 at [facility] [employer] [id number] / / Director [employer] [place] 20ga 7.5cm 2 Part Stabilizer Repositionable Depth Espinoza [id number] - [id number] Implanted:Qty: 2 on 01/06/2024 at [facility] [employer] [id number] 05/05/2028 [id number] / / [id number] Procedures Procedure Name Priority Date/Time Associated Diagnosis Comments SCREENING MAMMOGRAM RIGHT W FARHAN UNILATERAL ONLY Schedule Routine, Read Routine (OP Routine) 07/26/2024 3:42 PM HUMAN RESOURCES TECHNICIAN 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 Encounter for screening mammogram for malignant neoplasm of breast POCT LIPID PANEL Routine 12/28/2023 1:17 PM CDT Lipid screening EGFR Routine 06/25/2022 6:31 AM HUMAN RESOURCES TECHNICIAN POCT HEMOGLOBIN A1C Routine 06/22/2022 4:16 PM HUMAN RESOURCES TECHNICIAN from Last 3 Months or Most Recently Relevant to Health Maintenance Results * Screening Mammogram Right W Farhan Unilateral Only (07/26/2024 3:42 PM HUMAN RESOURCES TECHNICIAN) Anatomical Region Laterality Modality Breast Right Mammography Narrative 07/27/2024 10:09 AM HUMAN RESOURCES TECHNICIAN Mammogram Technique: Right Breast Digital Breast Tomosynthesis, Unilateral C-view 2D Screening mammogram. Views obtained: right craniocaudal and right mediolateral oblique. Computer Aided Detection was performed. Mammogram Findings: The present examination has been compared to prior imaging studies performed at [facility] on 04/08/2022, 08/04/2023 and 09/05/2023. There [...] compared to prior imaging studies performed at [facility] on 04/08/2022, 08/04/2023 and 09/05/2023. There are [...] Result * (ABNORMAL) eGFR (06/25/2022 6:31 AM HUMAN RESOURCES TECHNICIAN) eGFR 51(L) 90 - 130 mL/min/1. 73 [...] last reviewed 2021. Blood 06/25/2022 6:31 AM HUMAN RESOURCES TECHNICIAN 06/25/2022 6:41 AM HUMAN RESOURCES TECHNICIAN Sam Posadas MD LAB BLOOD ORDERA BLES Final Result Performing Organization Address City/[facility]/ZIP Co de Phone Number [facility] Department [place] [address] * (ABNORMAL) POCT hemoglobin A1c (06/22/2022 4:16 PM HUMAN RESOURCES TECHNICIAN) Hgb A1C, POC 6.6(H) 4.0 - 5.6 % [facility] Est Average Gluc POC 143 mg/dL [facility] Comment: The ADA recommends reporting an estimated Average Glucose (eAG) with all Hemoglobin A1c results using the equation derived from a study of 507 normal and diabetic adults. Minority populations were underrepresented and children were not included. (Diabetes Care 31:6091-3824, 2008). The eAG is not equivalent to a fasting glucose. Blood 06/22/2022 4:16 PM HUMAN RESOURCES TECHNICIAN 06/22/2022 4:16 PM HUMAN RESOURCES TECHNICIAN Sam Posadas MD POINT OF CARE TE ST ORDERABLES Final Result Performing Organization Address [facility] Co de Phone Number [facility] Department [place] [address] from Last 3 Months or Most Recently Relevant to Health Maintenance Insurance MEDICARE COMMERCIAL GENERIC COMMERCIAL GENERIC MEDICARE MEDICARE [place] [id number] H & W MCR SUPPLEMENT Advance Directives For more information, please contact: [phone] * Full Code (Latest Code Status on File) Date Activated Date Inactivated Comments 02/10/2024 2:08 PM 02/11/2024 10:07 PM * Full Code Date Activated Date Inactivated Comments 06/24/2022 6:44 PM 06/25/2022 7:30 PM Care Teams Warehouse Checker Relationship Specialty Start Date End Date Alton Myrick MD PCP - General Family Practice 04/07/20 Nyasia Jackson MD PhD [id number] [place] [address] Surgeon Surgical Oncology 01/06/24
--- OUTSIDE RECORDS SUMMARY | 2025-03-01 11:01 | XMS_ITS ---
Author Organization [facility] [address] Address [address] [place] [address] Care Team Providers Care Rn Renal Name Role Phone Alton Myrick MD Primary [...] (06/22/2022): Added automatically from request for surgery [id number] Hyperlipidemia associated with type 2 diabetes m kumaritus 04/20/2021 Abnormal carotid pulse 03/26/2019 Hypercholesteremia 03/21/2017 Coronary artery disease invo lving [place] coronary artery of [place] heart without angina pectoris 09/10/2014 Overview (10/15/2016): [...]
--- OUTSIDE RECORDS SUMMARY | 2025-03-01 11:01 | XMS_ITS | Clinical Summary ---
Author Organization [facility] [address] Address [address] [place] [address] Care Team Providers Care Hydroelectric Plant Technician Name Role Phone Alton Myrick MD [...] for Itching. Active azelastine-flut icasone 137-50 mcg/spray Fowler, Non-Aerosol Administer 2 Sprays in each nostril 2 times daily. Active Active Problems No known active problems Encounters Date Type Department Care Team Description 02/27/2025 External Device Data ST[facility] ABSTRACTION Provider, Abstract 02/15/2025 12:00 PM CDT Office Visit [facility] Oncology and Hematology - [place] [address] [place] [address] August Jackman MD Chronic anemia (Primary Dx) 02/12/2025 External Device Data STL ABSTRACTION Provider, Abstract 02/07/2025 Orders Only [facility] Oncology and Hematology - [place] [address] [place] [address] August Jackman MD 01/23/2025 External Device Data STL ABSTRACTION Provider, [...] on file Legal Sex Female 1:53 PM INTERNAL AUDIT SENIOR MANAGER Gender Identity Not on file Sexual Orientation Not on file Last Filed Vital Signs Vital Sign Reading Time Taken Comments Blood Pressure 123/73 02/15/2025 11:59 AM CDT Pulse 76 02/15/2025 11:59 AM CDT Temperature 36.4 C (97.5 F) 02/15/2025 11:59 AM CDT Respiratory Rate 15 02/15/2025 11:59 AM CDT Oxygen Saturation 94% 02/15/2025 11:59 AM CDT Inhaled Oxygen Concentration - - Weight 71.8 kg (158 lb 3.2 oz) 02/15/2025 11:59 AM CDT Height 160 cm (5' 3) 07/23/2024 3:07 PM INTERNAL AUDIT SENIOR MANAGER Body Mass Index 28.02 07/23/2024 3:07 PM INTERNAL AUDIT SENIOR MANAGER Plan of Treatment Upcoming Encounters Date Type Department Care Team (Late st Contact Info) Description 06/26/2025 1:15 PM INTERNAL AUDIT SENIOR MANAGER Office Visit [facility] Oncology and Hematology - [place] [address] [facility] [address] [place] [address] August Jackman MD [address] [facility] [address] [place] [address] Health Maintenance Due Date Last [...] Additional history exists INFLUENZA VACCINE (#1) 2025 , 04/18/2022, 03/28/2021, Additional history exists BREAST CANCER SCREENING 07/26/2025 07/26/19, 07/26/2024, 07/26/2024, Additional history exists DIABETES ANNUAL RETINAL EXAM 11/15/202502/2025, 11/15/2024, 10/09/2024, Additional history exists OSTEOPOROSIS SCREENING 09/05/2028 09/05/2023, 2020 COLORECTAL SCREENING 05/09/2033 05/09/2023, 11/11/19 Colorectal Cancer Screening 05/09/2033 PNEUMOCOCCAL VACCINE 50+ YEARS Completed 04/26/2023 Procedures Procedure Name Priority Date/Time Associated Diagnosis Comments CBC WITH AUTODIFFERENTIAL Routine 2024 11:53 AM CDT from Last 3 Months Results * CBC WITH AUTODIFFERENTIAL (02/07/2025 11:53 AM CDT) Blood August Jackman MD HEMATOLOGY ORDERABLES Final Res ult from Last 3 Months Insurance MEDICARE PART A AND B GENERIC PAYOR Care Teams Hydroelectric Plant Technician Relationship Specialty Start Date End Date Alton Myrick MD [address] [place] [address] PCP - General Family Practice 10/12/24
--- OUTSIDE RECORDS SUMMARY | 2025-03-01 11:01 | XMS_ITS | Encounter Summary ---
Author Organization [facility] Address [address] [place] [address] Care Team Providers Care Bag Machine Operator Helper Name Role Phone Alton Myrick MD Primary Care Provider Encounter Details Date Type Department Care Team (Late st Contact Info) Description 02/27/2025 External Device Data [facility] ABSTRACTION Provider, Abstract NO ADDRESS ON FILE Social History Tobacco Use Types Packs/Day Years Used Date Smoking Tobacco: Never Smokeless Tobacco: Never Alcohol Use Standard Drinks/Week Comments Yes 0 (1 standard drink = 0.6 oz pur e alcohol) occasionaly Comments Unknown Sex and Gender Information Value Date Recorded Sex Assigned at Not on file Legal Sex Female 1:53 PM STORE ADMINISTRATIVE ASSISTANT Gender Identity Not on file Sexual Orientation Not on file documented as of this encounter Plan of Treatment Upcoming Encounters Date Type Department Care Team (Late st Contact Info) Description 06/26/2025 1:15 PM STORE ADMINISTRATIVE ASSISTANT Office Visit [facility] Oncology and Hematology - [place] [address] [facility] [address] [place] [address] August Jackman MD [address] [facility] [address] [place] [address] documented as of this encounter Visit Diagnoses Not on filedocumented in this encounter Care Teams Bag Machine Operator Helper Relationship Specialty Start Date End Date Alton Myrick MD [address] [place] [address] [place] [address] PCP - General Family Practice 10/12/24 documented as of this encounter
--- OUTSIDE RECORDS SUMMARY | 2025-03-01 11:01 | XMS_ITS | Clinical Summary ---
Author Organization [facility] Address [address] [facility] [address] [place] [address] Phone Care Team Providers Care Mushroom Growing Supervisor Name Role Phone Alan Herrera MD Primary Care Provider Espinoza Montiel DO Unavailable [phone] Allergies Active Allergy Reactions Criticality Noted [...] Recently Relevant to Health Maintenance Insurance MEDICARE [employer] GENERIC Care Teams Mushroom Growing Supervisor Relationship Specialty Start Date End Date Alan Herrera MD [address] [place] [address] PCP - General Family Medicine 03/11/17 Espinoza Montiel DO [address] [place] [address] Consulting Physician Gastroenterology 11/10/17
== END 2025-03-01 10:58 | disposition home or self-care (01) ==
LOC: ANHAUDIO 10:57
PROVIDERS: PCP Family Medicine; Visit Provider Nurse Practitioner Family
DX: Z00.00 Encounter for general adult medical examination without abnormal findings (principal); D50.9 Iron deficiency anemia, unspecified; C50.912 Malignant neoplasm of unspecified site of left female breast; Z17.0 Estrogen receptor positive status [ER+]; H90.3 Sensorineural hearing loss, bilateral
CPT/HCPCS: 92557; 92567; 99199

== ENCOUNTER 2025-04-09 13:00 | Outpatient (RCR) | payer MEDICARE, OTHER, SELFPAY | END 2025-04-09 23:59 | disposition home or self-care (01) | LOC: ANHAUDIO 13:00 | PROVIDERS: PCP Family Medicine; Visit Provider Family Medicine | DX: Z46.1 Encounter for fitting and adjustment of hearing aid (principal) | CPT/HCPCS: 99199; V5261 ==